=== PATIENT | female | born 1925 | race Caucasian/White ===

== ENCOUNTER 2016-09-24 12:28 | Inpatient (IN) | payer OTHER, MEDICARE ==
[~2016-09-24] VITALS: Ht 158.8 cm; Wt 66.7 kg
[2016-10-07] MEDS ORDERED: ATOR40TA16 PO (15:43)
[2016-10-07] MEDS ORDERED: OCUVTAB PO (15:43)
[2016-10-07] MEDS ORDERED: SYNT25TA PO (15:43)
[2016-10-07] MEDS ORDERED: AMOX500C PO (15:43)
[2016-10-07] MEDS ORDERED: OMEP20TA PO (15:56)
[2016-10-09] MEDS ORDERED: INSULIN HUMAN REGULAR 1,000 UNITS/10 ML VIAL SQ PRN (06:15)
[2016-10-09] MEDS ORDERED: VANCOMYCIN 1000 MG/NS 250 ML (for <70 kg) IV SCH ×2 (06:15)
[2016-10-09] MEDS ORDERED: POVIDONE IODINE 7.5% SCRUB 118 ML BOTTLE TOPICAL SCH (06:15)
[2016-10-09] MEDS ORDERED: SODIUM CHLORID 0.9% 500 ML IV PRN (06:15)
[2016-10-09] MEDS ORDERED: DEXAMETHASONE SOD PHOS 20 MG/5 ML VIAL IV SCH (06:15)
[2016-10-09] MEDS ORDERED: POVIDONE IODINE 5% (ANTISEPSIS KIT) 4 APPLICATIONS EACH NARE PRN (06:15)
[2016-10-09] MEDS ORDERED: CHLORHEXIDINE GLUCONATE 2 % 1 PACK (2 CLOTHS) TOPICAL PRN (06:15)
[2016-10-09] MEDS ORDERED: METOPROLOL TARTRATE 25 MG TAB PO PRN (06:15)
[2016-10-09] MEDS ORDERED: ceFAZolin 2 GM PREMIX 50 ML IV SCH (06:15)
[2016-10-09] MEDS ORDERED: LACTATED RINGER'S 1000 ML IV PRN (06:15)
--- NOTE | 2016-10-09 06:51 | HHI.DCPOC ---
Discharge Care Plan Diagnosis: (1) Primary localized osteoarthrosis, lower leg (2) Status post total knee replacement, left Your Health Problems Are: Difficulty with ADL Goals to Promote Your Health * To prevent worsening of your condition and complications * To maintain your health at the optimal level Directions to Meet Your Goals Take your medications as prescribed Follow your dietary instruction Follow activity as directed Keep your appointments as scheduled Take your immunizations and boosters as scheduled If your symptoms worsen call your PCP, if no PCP go to Urgent Care Center or Emergency Room Smoking is Dangerous to Your Health. Avoid second hand smoke Call the 24-hour hour crisis hotline for domestic abuse at Ruy Umanzor Oct 09, 2016 06:51
--- NOTE | 2016-10-09 06:52 | HHI.FF ---
Face to Face Verification Diagnosis: (1) Primary localized osteoarthrosis, lower leg (2) Status post total knee replacement, left Physical Therapy Gait training, Transfer training, bed to chair Knee: Total knee Left LE Weight Bearing: WB as tolerated Left LE Range of Motion: Active ROM Nursing Nursing: Nando teaching, Dressing changes Dressing Changes: Daily dressing change I have seen patient Cher Perez on 10/09/16. My clinical findings support the need for the requested home health care services because: Limited ability to care for self High risk of falls I certify that my clinical findings support that this patient is homebound because: Post-op weakness Unsteady gait/balance Ruy Umanzor Oct 09, 2016 06:52
[2016-10-09] MEDS ORDERED: COMMODE 3-IN-11 MIS (06:54)
[2016-10-09] MEDS ORDERED: CPMMACHINE (06:54)
[2016-10-09] MEDS ORDERED: WALKER WHEELS/F1 MIS (06:54)
[2016-10-09] MEDS ORDERED: FISHCAP4 PO (07:11)
[2016-10-09] MEDS ORDERED: ACETAMINOPHEN 1000 MG/100 ML 100 ML IV ONE (08:09)
[2016-10-09] MEDS ORDERED: DEXAMETHASONE SOD PHOS 4 MG/ML VIAL ONE (08:09)
[2016-10-09] MEDS ORDERED: FAMOTIDINE 20 MG/2 ML VIAL ONE (08:13)
[2016-10-09] MEDS ORDERED: ceFAZolin INJ 1,000 MG VIAL ONE (08:20)
[2016-10-09] MEDS ORDERED: GENTAMICIN SULFATE 80 MG/2 ML VIAL ONE (08:20)
[2016-10-09] MEDS ORDERED: TRANEXAMIC ACID IV SCH (08:30)
[2016-10-09] MEDS ORDERED: SODIUM CHLORIDE 0.9% IV SCH (08:30)
[2016-10-09] MEDS ORDERED: ROPIVACAINE PERI-ARTICULAR INJECTION. P-ARTICULR SCH ×5 (08:30)
--- NOTE | 2016-10-09 10:22 | PD.OP ---
cc: Mushtaq Giordano MD Operative Report Date of Surgery: Oct 09, 2016 Preoperative Diagnosis: Left knee severe osteoarthritis Postoperative Diagnosis: Same Procedure: Left total knee arthroplasty Anesthesia: Spinal and adductor canal block Surgeon: Mushtaq Giordano Home Health Care Case Manager(s): CHARAN Serrano The surgical procedure was assisted by my Advanced Registered Nurse Practitioner. My PAN CLEANER presence was necessary throughout this case for the manipulation and positioning of the surgical extremity. My PAN CLEANER was assisting me throughout the duration of this procedure. The skill set of an Advance Registered Nurse Practitioner was medically necessary to complete this procedure. During the surgical case, the senior games technician was working at the back table and the Advance Registered Nurse Practitioner was directly assisting me. Operation and Findings: IMPLANTS: DePuy Attune: Patella: size 35. Femur, posterior stabilized size 8. Tibia, rotating platform size 7. Tibial insert, rotating platform, posterior stabilized size 5 mm thickness. ESTIMATED BLOOD LOSS: 100 cc TOURNIQUET TIME: 39 minutes at 250 mmHg pressure. JUSTIFICATION FOR PROCEDURE: The patient has end-stage osteoarthritis to the knee. There is an attached conservative measures pathway form in the chart that describes the nonoperative measures that were undertaken prior to consideration of surgical management. The patient understood the risks and benefits of surgical management. See my office notes for further details PROCEDURE: The patient was brought back to the operative theatre. Adequate anesthesia was obtained. The patient received intravenous vancomycin and Ancef. The lower extremity was prepped and draped in the usual sterile fashion.The leg was exsanguinated, the tourniquet was raised. A standard anterior incision was performed followed by medial parapatellar arthrotomy was performed. End-stage arthritis was identified. Osteotomy of the patella was performed. We drilled holes for the patella. We trialed the patella component. We placed an intramedullary guide into the distal femur. We ultimately resected 11 mm off of the distal femur in 5 degrees of valgus. The remnants of the ACL and PCL were resected. Osteotomy of the proximal tibia was performed, resecting 5 mm off of the medial side. This was done with 3 degrees of posterior slope using an extramedullary guide. The distal end of the guide was placed in the mid aspect of the ankle. The femur was sized, and four chamfer cuts were completed in 3 of external rotation. We then cut the central box in the distal femur to replace the PCL. We resected the remnants of the menisci and removed osteophytes off of the femur and tibia. We then trialed the knee. We punched the tibia for the keel, and then used standard technique to cement in components. Excess cement was removed. We trialed the knee again and the final polyethylene thickness was chosen to provide extension to 0 degrees, and flexion of 140 degrees to gravity. The ligaments were appropriately balanced. Lateral release was necessary to obtain excellent patellofemoral tracking. The tourniquet was released and adequate hemostasis was obtained. An intra- articular injection of a ropivacaine cocktail was injected. The posterior knee was inspected for excess cement, which was removed. The final polyethylene was put into position after thorough irrigation. There was a partial avulsion of the patellar tendon off of the tubercle. This was repaired with an Arthrex bioabsorbable anchor which had 2 individual #2 fiber wires with needles within the anchor. The anchor had very good purchase. We used the sutures to throw a modified Krakw stitch into the tendon and then the sutures were tied to themselves. Overall we felt we had an excellent repair of the partial tear. No change in postoperative protocol will be necessary for this. We then closed deep fascia with a #2 Stratafix followed by skin with 2-0 Vicryl followed by angie. Postop plan is to weight-bear as tolerated. DVT prophylaxis will be performed with SCDwillie, LIZETTE astudillo, early mobilization, and Lovenox followed by aspirin. Mushtaq Giordano MD Oct 09, 2016 10:22
[2016-10-09] MEDS ORDERED: ASPI325T PO (10:23)
[2016-10-09] MEDS ORDERED: NORC5TAB PO (10:23)
[2016-10-09] MEDS ORDERED: ENOX40P SQ (10:23)
[2016-10-09] MEDS ORDERED: NALOXONE HCL 0.4 MG/ML AMP IV PRN (10:30)
[2016-10-09] MEDS ORDERED: ALUMINUM/MAGNESIUM/SIMETH 30 ML CUP PO PRN (10:30)
[2016-10-09] MEDS ORDERED: MAGNESIUM HYDROXIDE SUSP 30 ML CUP PO PRN (10:30)
[2016-10-09] MEDS ORDERED: BISACODYL 10 MG SUPP RECTAL PRN (10:30)
[2016-10-09] MEDS ORDERED: diphenhydrAMINE HCL 50 MG/ML VIAL IV PRN (10:30)
[2016-10-09] MEDS ORDERED: MORPHINE SULFATE 4 MG/ML INJ IV PUSH PRN (10:30)
[2016-10-09] MEDS ORDERED: SODIUM CHLORIDE 0.9% FLUSH 5 ML FLUSH IVF PRN (10:30)
[2016-10-09] MEDS ORDERED: ONDANSETRON HCL 4 MG/2 ML VIAL IVP PRN (10:30)
[2016-10-09] MEDS ORDERED: ZOLPIDEM TARTRATE 5 MG TAB PO PRN (10:30)
[2016-10-09] MEDS ORDERED: Post-op Orders (for Pharmacy) MISC XX ONE (10:49)
[2016-10-09] MEDS: SODIUM CHLOR 0.9% 1000 ML INJ 1,000 ML IV SCH ×2 (11:00→20:17)
[2016-10-09] MEDS ORDERED: MIDAZOLAM HCL 2 MG/2 ML VIAL ONE (11:09)
[2016-10-09] MEDS ORDERED: MORPHINE SULFATE 4 MG/ML INJ ONE (11:09)
[2016-10-09] MEDS ORDERED: TRANEXAMIC ACID INJ 670 MG in SODIUM CHLORIDE 0.9% INJ 100 ML IV SCH (11:30)
--- NOTE | 2016-10-09 11:36 | RADRPT ---
EXAM DATE/TIME: 10/09/2016 11:01 [place] COMPARISON: No previous studies available for comparison. INDICATIONS : Post-op left knee. MEDICAL HISTORY : None. SURGICAL HISTORY : None. ENCOUNTER: Initial ACUITY: 1 day PAIN SCORE: 0/10 LOCATION: Left Knee. FINDINGS: 2 views of the knee show a total knee prosthesis in good position. No fracture or dislocation is obse rved. Soft tissue swelling is noted. Air and fluid noted within the joint. CONCLUSION: Total knee arthroplasty in good position. Wilbur Mitchell Jr., MD on October 09, 2016 at 11:28 Board Certified Radiologist. This report was verified electronically.
[2016-10-09] MEDS ORDERED: *morphine SULFATE 8 MG/ML PERIprocedure ONLY ONE ×2 (11:43→12:36)
[2016-10-09] MEDS ORDERED: PROPOFOL 200 MG/20 ML AMP IV ONE (12:00)
[2016-10-09] MEDS ORDERED: PHENYLEPH/NS 1000 MCG/10 ML SYR IV ONE (12:00)
[2016-10-09] MEDS ORDERED: LACTATED RINGER'S 1000 ML INJ 1,000 ML IV ONE (12:00)
[2016-10-09] MEDS ORDERED: ONDANSETRON HCL 4 MG/2 ML VIAL IV PUSH ONE (12:00)
--- NOTE | 2016-10-09 12:41 | PD.CONS ---
HPI Service [facility] Hospitalists Consult Requested By Dr. Mushtaq Giordano Reason for Consult Medical management Primary Care Physician Lyao Carlos MD Diagnoses: History of Present Illness This is an 89-year-old female with a past medical history of hypertension, hypothyroidism, dyslipidemia, GERD and osteoarthritis of the left knee who failed attempts at conservative management having increasing difficulties with her ADLs who underwent an elective left total knee replacement performed by Dr. Giordano who has consulted hospitalist services for medical management. Patient seen and examined today in the PACU. Patient's pain level in the left knee is currently controlled. She denies any complaints presently. She denies any recent issues with fever, chills, nausea, vomiting, shortness of breath, chest pain, abdominal pain, urinary difficulties or bowel problems. States her last bowel movement was at 4 AM this morning. Patient reports she is very active and plays on a competitive bowling league. Review of Systems Except as stated in HPI: all other systems reviewed are Neg Past Family Social History Allergies: Coded Allergies: Sulfa (Sulfonamide Antibiotics) (Verified Allergy, Severe, Rash, 10/09/16) Past Medical History Osteoarthritis left knee Hypothyroidism Dyslipidemia GERD Past Surgical History Left total knee replacement performed earlier today by Dr. Giordano Appendectomy Hysterectomy Tonsillectomy Cataract surgery Reported Medications Synthroid 50 g 1 by mouth daily Lipitor 40 mg 1 by mouth daily Omeprazole 40 mg daily Active Ordered Medications Current Medications Medications (Trade) Dose Ordered Sig/Ana Maria Route Start Time Stop Time Status Last Admin (Lopressor) 25 mg STEWARD/STEWARDESS SMOKE ROOM PRN PO 10/09/16 06:15 10/12/16 06:14 (Betadine 5% Antisepsis Kit) 1 applic STEWARD/STEWARDESS SMOKE ROOM PRN EACH NARE 10/09/16 06:15 10/12/16 06:14 10/09/16 07:35 (Chlorhexidine 2% Cloth) 3 pack STEWARD/STEWARDESS SMOKE RO[facility] PRN TOPICAL 10/09/16 06:15 10/12/16 06:14 10/09/16 06:15 (NovoLIN R INJ) See Protocol Table ... STEWARD/STEWARDESS SMOKE ROOM PRN SQ 10/09/16 06:15 10/12/16 06:14 (Betadine 7.5% Scrub) 1 applic ONCE TOPICAL 10/09/16 06:15 10/12/16 06:14 10/09/16 06:30 Tranexamic Acid 669 mg/Sodium Chloride 106.69 ml @ 200 mls/ hr ONCE IV 10/09/16 08:30 10/09/16 14:30 10/09/16 11:13 (Decadron Inj) 10 mg STEWARD/STEWARDESS SMOKE ROOM IV 10/09/16 06:15 10/10/16 06:14 10/09/16 07:30 Ropivacaine 24.63 ml/Ketorolac Tromethamine 30 mg/Epinephrine HCl 0.5 mg/ Clonidine 80 mcg/ Sodium Chloride 100 ml @ 200 mls/hr ONCE P-ARTICULR 10/09/16 08:30 10/09/16 14:30 10/09/16 10:05 (Trimox) 500 mg BID PO 10/09/16 21:00 (Lipitor) 40 mg HS PO 10/09/16 21:00 (Synthroid) 50 mcg DAILY@0600 PO 10/10/16 06:00 (Protonix) 20 mg DAILY PO 10/10/16 09:00 Sodium Chloride 1,000 ml @ 100 mls/hr Q10H IV 10/09/16 10:17 10/09/16 11:00 (NS Flush) 2 ml UNSCH PRN IVF 10/09/16 10:30 (NS Flush) 2 ml BID IVF 10/09/16 21:00 Cefazolin Sodium 1000 mg/Sodium Chloride 100 ml @ 200 mls/hr Q6H IV 10/09/16 13:00 10/10/16 01:29 (Decadron Inj) 10 mg ONCE ONCE IV 10/10/16 07:45 10/10/16 07:46 (Lovenox Inj) 40 mg Q24H SQ 10/10/16 10:00 10/19/16 10:01 ([place] 5-325 Mg) 1 tab Q4H PRN PO 10/09/16 10:30 ([place] 5-325 Mg) 2 tab Q4H PRN PO 10/09/16 10:30 Tranexamic Acid 670 mg/Sodium Chloride 106.7 ml @ 200 mls/hr UNSCH IV 10/09/16 11:30 10/09/16 13:30 10/09/16 12:06 (Theragran M Tab) 1 tab BID PO 10/10/16 21:00 12/09/16 20:59 (Zofran Inj) 4 mg Q6H PRN IVP 10/09/16 10:30 (Colace) 100 mg BID PO 10/10/16 21:00 (Mag-Al Plus Susp Liq) 30 ml Q6H PRN PO 10/09/16 10:30 (Ambien) 5 mg HS PRN PO 10/09/16 10:30 (Dulcolax Supp) 10 mg DAILY PRN RECTAL 10/09/16 10:30 (Milk Of Magnesia Liq) 30 ml DAILY PRN PO 10/09/16 10:30 (Narcan Inj) 0.4 mg UNSCH PRN IV 10/09/16 10:30 (Benadryl Inj) 25 mg Q6H PRN IV 10/09/16 10:30 (Morphine Inj) 2 mg Q3H PRN IV PUSH 10/09/16 10:30 Family History Father, , coronary artery disease age 53 Mother, , natural causes age 102 Social History Patient reports remote history of tobacco use 30-40 years ago. She reports smoking half pack a day for 5-6 years. She admits to social alcohol use. She denies any illicit drug use. Patient lives alone. Physical Exam Vital Signs Vital Signs Date Time Temp Pulse Resp B/P (MAP) Pulse Ox O2 Delivery O2 Flow Rate FiO2 10/09/16 12:00 97.4 80 15 145/78 (100) 95 Nasal Cannula 2 10/09/16 11:45 79 15 158/83 (108) 95 Nasal Cannula 2 10/09/16 11:30 78 15 158/77 (104) 94 Nasal Cannula 2 10/09/16 11:15 77 15 154/73 (100) 94 Nasal Cannula 2 10/09/16 11:00 79 15 145/68 (93) 98 Nasal Cannula 3 10/09/16 10:48 97.5 83 15 132/63 (86) 94 Nasal Cannula 3 10/09/16 10:05 67 160/79 Physical Exam GENERAL: This is a well-nourished, well-developed patient, in no apparent distress. Awake and alert. Lying in hospital bed in PACU. Appears comfortable. SKIN: No rashes, ecchymoses or lesions. Cool and dry. HEAD: Atraumatic. Normocephalic. No temporal or scalp tenderness. EYES: Pupils equal round and reactive. Extraocular motions intact. No scleral icterus. No injection or drainage. ENT: Nose without bleeding or purulent drainage. Throat without erythema, tonsillar hypertrophy or exudate. Uvula midline. Airway patent. NECK: Trachea midline. No lymphadenopathy. Supple, nontender, no meningeal signs. CARDIOVASCULAR: Regular rate and rhythm without murmurs, gallops, or rubs. RESPIRATORY: Clear to auscultation. Breath sounds equal bilaterally. No wheezes , rales, or rhonchi. GASTROINTESTINAL: Abdomen soft, non-tender, nondistended. No hepato-splenomegaly , or palpable masses. No guarding. MUSCULOSKELETAL: Extremities without clubbing, cyanosis, or edema. LLE in postop dressing and splint which are C/D/I. NEUROLOGICAL: Awake and alert. Able to move all extremities spontaneously except for LLE which is in splint. Able to weakly wiggle toes on left foot. Sensation intact LLE distally to light touch. Normal speech. Imaging Last Impressions Knee X-Ray 10/09/16 1017 Signed Impressions: Service Date/Time: Sunday, October 09, 2016 11:01 - CONCLUSION: Total knee arthroplasty in good position. Wilbur Mitchell Jr., MD Assessment and Plan Assessment and Plan 89-year-old female with a past medical history of hypertension, hypothyroidism, dyslipidemia, GERD and osteoarthritis of the left knee who failed attempts at conservative management having increasing difficulties with her ADLs who underwent an elective left total knee replacement performed by Dr. Giordano who has consulted hospitalist services for medical management. Left knee osteoarthritis failed attempts at outpatient conservative management status postop elective left total knee replacement by Dr. Giordano - Begin participation with PT/OT - wound care - pain management with [place] and IV Morphine. Bowel regimen. Monitor for constipation - DVT prophylaxis with SCD/LIZETTE hose, early mobilization, Lovenox followed by ASA per primary team - monitor for postoperative anemia - labs ordered for am - encourage use of bedside IS UTI - diagnosed as outpatient a few days ago - patient is asymptomatic - patient continued on Amoxicillin by primary team - add Lactobacillus to regimen Hypothyroidism - resume patients home dose of Levothyroxine 50mcg daily Hyperlipidemia - resume patients home dose of Lipitor 40mg daily GERD - resume patients home dose of PPI DVT prophylaxis - Bilateral SCD/LIZETTE hose, early mobilization and Lovenox followed by ASA Discussed with patient and Dr. Catherine Thank you very kindly for this consultation and will gladly follow along with you. The exam, history, and the medical decision-making described in the above note were completed with the assistance of the mid-level provider. I reviewed and agree with the findings presented. I attest that I had a [id number] encounter with the patient on the same day, and personally performed and documented my assessment and findings in the medical record. Anamaria Singh Oct 09, 2016 12:41 Cliff Barrett MD Oct 09, 2016 16:21
[2016-10-09] MEDS: LACTOBACILLUS ACIDOPHILUS TAB PO SCH ×2 (14:00→20:09)
[2016-10-09] MEDS ORDERED: DO NOT ADM ANY ANTICOAGULANT DRUGS PRN (14:15)
[2016-10-09 16:00] VITALS: BP 179/79; PULSE 73; RESP 18; TEMP 96.4; O2SAT 96
[2016-10-09] MEDS: ATORVASTATIN 40 MG TAB PO SCH (20:09)
[2016-10-09] MEDS: SODIUM CHLORIDE 0.9% FLUSH 5 ML FLUSH IVF SCH (20:09)
[2016-10-09] MEDS: AMOXICILLIN (TRIHYDRATE) 500 MG CAP PO SCH (20:09)
[2016-10-09 20:25] VITALS: BP 136/78; PULSE 61; RESP 17; TEMP 96.2; O2SAT 96
[2016-10-10] VITALS (9 sets, daily range): BP systolic 89–153; BP diastolic 52–64; PULSE 67–105; RESP 16–18; TEMP 96.6–98.4; O2SAT 89–96
[2016-10-10 06:03] LABS: HEMATOCRIT 29.7 % (35.0-46.0); MEAN CELL VOLUME 88.6 FL (80.0-100.0); MEAN CORPUSCULAR HEMOGLOBIN 29.9 PG (27.0-34.0); MEAN CORPUSCULAR HGB CONC 33.8 % (32.0-36.0); PLATELET COUNT 134 TH/MM3 (150-450); RED BLOOD COUNT 3.35 MIL/MM3 (4.00-5.30); RED CELL DISTRIBUTION WIDTH 13.4 % (11.6-17.2); REVIEW FLAG FINAL; WHITE BLOOD COUNT 7.9 TH/MM3 (4.0-11.0)
[2016-10-10] MEDS: SODIUM CHLOR 0.9% 1000 ML INJ 1,000 ML IV SCH ×3 (06:17→23:56)
[2016-10-10] MEDS: ACETAMINOPHEN/HYDROcodone 325 MG/5 MG TAB PO PRN ×4 (06:23→20:35)
[2016-10-10] MEDS: LEVOTHYROXINE SODIUM 25 MCG TAB PO SCH (06:23)
[2016-10-10 06:33] LABS: ANION GAP 9 MEQ/L (5-15); AST (GOT) 15 U/L (15-37); BLOOD UREA NITROGEN 25 MG/DL (7-18); CHLORIDE 108 MEQ/L (98-107); GLOMERULAR FILTRATION RATE 53 ML/MIN (>89); MAGNESIUM 1.7 MG/DL (1.5-2.5); POTASSIUM 3.9 MEQ/L (3.5-5.1); SODIUM (NA) 142 MEQ/L (136-145)
[2016-10-10 06:34] LABS: ALT (GPT) 16 U/L (10-53)
[2016-10-10 06:37] LABS: ALKALINE PHOSPHATASE 74 U/L (45-117); TOTAL BILIRUBIN ADULT 0.3 MG/DL (0.2-1.0)
[2016-10-10] MEDS ORDERED: DEXAMETHASONE SOD PHOS 20 MG/5 ML VIAL IV ONE (07:45)
[2016-10-10] MEDS: SODIUM CHLORIDE 0.9% FLUSH 5 ML FLUSH IVF SCH ×2 (09:00→20:40)
--- NOTE | 2016-10-10 09:41 | HHI.PR ---
Subjective Remarks This is an 89-year-old female with Hypertension, Hypothyroidism, Hyperlipidemia , GERD, OA, Who failed outpatient management for OA and was brought in by Orthopedic surgery for elective left total knee replacement performed by Dr. Giordano 10/10: Seen in her bedroom in the presence of nurse and her Son Mr. Valle no complaint, no nausea, vomit or diarrhea, stable for discharge from medicine standpoint. Objective Vital Signs Date Time Temp Pulse Resp B/P (MAP) Pulse Ox O2 Delivery O2 Flow Rate FiO2 10/10/16 08:00 98.0 68 18 116/58 (77) 96 10/10/16 04:30 98.0 76 16 134/64 (87) 94 10/10/16 03:24 96 Nasal Cannula 2.00 10/10/16 00:15 96.6 78 17 153/61 (91) 96 10/09/16 20:25 96.2 61 17 136/78 (97) 96 10/09/16 16:00 96.4 73 18 179/79 (112) 96 10/09/16 16:00 96.4 73 18 179/79 (112) 96 10/09/16 14:45 97.5 71 16 131/75 (93) 95 Nasal Cannula 2 10/09/16 14:00 75 15 138/74 (95) 95 Nasal Cannula 2 10/09/16 13:00 82 15 142/75 (97) 95 Nasal Cannula 2 10/09/16 12:41 15 10/09/16 12:00 97.4 80 15 145/78 (100) 95 Nasal Cannula 2 10/09/16 11:48 15 10/09/16 11:45 79 15 158/83 (108) 95 Nasal Cannula 2 10/09/16 11:30 78 15 158/77 (104) 94 Nasal Cannula 2 10/09/16 11:15 77 15 154/73 (100) 94 Nasal Cannula 2 10/09/16 11:00 79 15 145/68 (93) 98 Nasal Cannula 3 10/09/16 10:48 97.5 83 15 132/63 (86) 94 Nasal Cannula 3 10/09/16 10:05 67 160/79 I/O 10/09/16 10/09/16 10/09/16 10/10/16 10/10/16 10/10/16 07:00 15:00 23:00 07:00 15:00 23:00 Intake Total 2903.39 ml 990 ml 340 ml Output Total 50 ml Balance 2853.39 ml 990 ml 340 ml Intake Oral 240 ml 240 ml 240 ml IV Total 813.39 ml 750 ml 100 ml Other 1850 ml Output Estimated Blood Loss 50 ml # Voids 4 1 3 # Bowel Movements 0 0 Result Diagram: 10/10/16 0457 10/10/16 0547 Imaging Last Impressions Knee X-Ray 10/09/16 1017 Signed Impressions: Service Date/Time: Sunday, October 09, 2016 11:01 - CONCLUSION: Total knee arthroplasty in good position. Wilbur Mitchell Jr., MD Procedures Left total knee Arthroplasty Other Results Laboratory Tests Test 10/10/16 04:57 10/10/16 05:47 White Blood Count 7.9 TH/MM3 Red Blood Count 3.35 MIL/MM3 Hemoglobin 10.0 GM/DL Hematocrit 29.7 % Mean Corpuscular Volume 88.6 FL Mean Corpuscular Hemoglobin 29.9 PG Mean Corpuscular Hemoglobin Concent 33.8 % Red Cell Distribution Width 13.4 % Platelet Count 134 TH/MM3 Mean Platelet Volume 8.9 FL Blood Urea Nitrogen 25 MG/DL Creatinine 0.98 MG/DL Random Glucose 98 MG/DL Total Protein 4.6 GM/DL Albumin 2.4 GM/DL Calcium Level 7.5 MG/DL Magnesium Level 1.7 MG/DL Alkaline Phosphatase 74 U/L Aspartate Amino Transf (AST/SGOT) 15 U/L Alanine Aminotransferase (ALT/SGPT) 16 U/L Total Bilirubin 0.3 MG/DL Sodium Level 142 MEQ/L Potassium Level 3.9 MEQ/L Chloride Level 108 MEQ/L Carbon Dioxide Level 25.0 MEQ/L Anion Gap 9 MEQ/L Estimat Glomerular Filtration Rate 53 ML/MIN Objective Remarks GENERAL: This is a well-nourished, well-developed patient, in no apparent distress. SKIN: No rashes, ecchymoses or lesions. Cool and dry. EYES: Pupils equal round and reactive. Extraocular motions intact. No scleral icterus. No injection or drainage. NECK: Trachea midline. No lymphadenopathy. Supple, nontender, no meningeal signs. CARDIOVASCULAR: Regular rate and rhythm without murmurs, gallops, or rubs. RESPIRATORY: Clear to auscultation. Breath sounds equal bilaterally. No wheezes , rales, or rhonchi. GASTROINTESTINAL: Abdomen soft, non-tender, nondistended. MUSCULOSKELETAL: Extremities without clubbing, cyanosis, or edema. LLE dressed. NEUROLOGICAL: Awake and alert. Medications and IVs Current Medications Medications (Trade) Dose Ordered Sig/Ana Maria Route Start Time Stop Time Status Last Admin (Lopressor) 25 mg PROPAGATOR PRN PO 10/09/16 06:15 10/12/16 06:14 (Betadine 5% Antisepsis Kit) 1 applic PROPAGATOR PRN EACH NARE 10/09/16 06:15 10/12/16 06:14 10/09/16 07:35 (Chlorhexidine 2% Cloth) 3 pack PROPAGATOR PRN TOPICAL 10/09/16 06:15 10/12/16 06:14 10/09/16 06:15 (NovoLIN R INJ) See Protocol Table ... PROPAGATOR PRN SQ 10/09/16 06:15 10/12/16 06:14 (Betadine 7.5% Scrub) 1 applic ONCE TOPICAL 10/09/16 06:15 10/12/16 06:14 10/09/16 06:30 (Trimox) 500 mg BID PO 10/09/16 21:00 10/09/16 20:09 (Lipitor) 40 mg HS PO 10/09/16 21:00 10/09/16 20:09 (Synthroid) 50 mcg DAILY@0600 PO 10/10/16 06:00 10/10/16 06:23 (Protonix) 20 mg DAILY PO 10/10/16 09:00 Sodium Chloride 1,000 ml @ 100 mls/hr Q10H IV 10/09/16 10:17 10/09/16 11:00 (NS Flush) 2 ml UNSCH PRN IVF 10/09/16 10:30 (NS Flush) 2 ml BID IVF 10/09/16 21:00 (Lovenox Inj) 40 mg Q24H SQ 10/10/16 10:00 10/19/16 10:01 ([place] 5-325 Mg) 1 tab Q4H PRN PO 10/09/16 10:30 10/10/16 06:23 ([place] 5-325 Mg) 2 tab Q4H PRN PO 10/09/16 10:30 (Theragran M Tab) 1 tab BID PO 10/10/16 21:00 12/09/16 20:59 (Zofran Inj) 4 mg Q6H PRN IVP 10/09/16 10:30 (Colace) 100 mg BID PO 10/10/16 21:00 (Mag-Al Plus Susp Liq) 30 ml Q6H PRN PO 10/09/16 10:30 (Ambien) 5 mg HS PRN PO 10/09/16 10:30 (Dulcolax Supp) 10 mg DAILY PRN RECTAL 10/09/16 10:30 (Milk Of Magnesia Liq) 30 ml DAILY PRN PO 10/09/16 10:30 (Narcan Inj) 0.4 mg UNSCH PRN IV 10/09/16 10:30 (Benadryl Inj) 25 mg Q6H PRN IV 10/09/16 10:30 (Morphine Inj) 2 mg Q3H PRN IV PUSH 10/09/16 10:30 10/09/16 17:50 (Lactinex) 1 tab Q12HR PO 10/09/16 14:00 10/09/16 20:09 Miscellaneous Information ALL NURSING DEPARTME... UNSCH PRN .XX 10/09/16 14:15 10/10/16 14:14 A/P Assessment and Plan 89-year-old female with a past medical history of hypertension, hypothyroidism, dyslipidemia, GERD and osteoarthritis of the left knee who failed attempts at conservative management having increasing difficulties with her ADLs who underwent an elective left total knee replacement performed by Dr. Giordano who has consulted hospitalist services for medical management. Left knee osteoarthritis failed attempts at outpatient conservative management status postop elective left total knee replacement by Dr. Giordano - Begin participation with PT/OT - wound care - pain management with [place] and IV Morphine. Bowel regimen. Monitor for constipation - DVT prophylaxis with SCD/LIZETTE hose, early mobilization, Lovenox followed by ASA per primary team - Hemoglobin Stable. UTI - treated. patient asymptomatic. Hypothyroidism - resume patients home dose of Levothyroxine 50mcg daily Hyperlipidemia - resume patients home dose of Lipitor 40mg daily GERD - resume patients home dose of PPI DVT prophylaxis - Bilateral SCD/LIZETTE hose, early mobilization and Lovenox followed by ASA Discharge Planning Okay to discharge from medicine standpoint. Cliff Barrett MD Oct 10, 2016 09:41
[2016-10-10] MEDS: PANTOPRAZOLE SOD 20 MG DELAYED RELEASE TAB PO SCH (10:24)
[2016-10-10] MEDS: AMOXICILLIN (TRIHYDRATE) 500 MG CAP PO SCH ×2 (10:24→20:35)
[2016-10-10] MEDS: LACTOBACILLUS ACIDOPHILUS TAB PO SCH ×2 (10:24→20:35)
[2016-10-10] MEDS: ENOXAPARIN SODIUM 40 MG/0.4 ML SYRINGE SQ SCH (10:24)
--- NOTE | 2016-10-10 12:22 | PD.ORT.PN ---
Subjective Post Op Day #: 1 Subjective Remarks The patient is resting in bed with moderate left knee pain. Patient's son at bedside. Patient has been ambulatory. Objective Vitals Vital Signs Date Time Temp Pulse Resp B/P (MAP) Pulse Ox O2 Delivery O2 Flow Rate FiO2 10/10/16 12:06 97.7 105 18 89/52 (64) 89 10/10/16 08:00 98.0 68 18 116/58 (77) 96 10/10/16 04:30 98.0 76 16 134/64 (87) 94 10/10/16 03:24 96 Nasal Cannula 2.00 10/10/16 00:15 96.6 78 17 153/61 (91) 96 10/09/16 20:25 96.2 61 17 136/78 (97) 96 10/09/16 16:00 96.4 73 18 179/79 (112) 96 10/09/16 16:00 96.4 73 18 179/79 (112) 96 10/09/16 14:45 97.5 71 16 131/75 (93) 95 Nasal Cannula 2 10/09/16 14:00 75 15 138/74 (95) 95 Nasal Cannula 2 10/09/16 13:00 82 15 142/75 (97) 95 Nasal Cannula 2 10/09/16 12:41 15 I/O 10/09/16 10/09/16 10/09/16 10/10/16 10/10/16 10/10/16 07:00 15:00 23:00 07:00 15:00 23:00 Intake Total 2903.39 ml 990 ml 340 ml Output Total 50 ml Balance 2853.39 ml 990 ml 340 ml Intake Oral 240 ml 240 ml 240 ml IV Total 813.39 ml 750 ml 100 ml Other 1850 ml Output Estimated Blood Loss 50 ml # Voids 4 1 3 # Bowel Movements 0 0 Result Diagram: 10/10/16 0457 10/10/16 0547 Procedures Left TKA Objective Remarks The patient's dressing is C/D/I. EHL/TA/G intact. 2+ pedal pulse. No swelling or tenderness to calf. + SILT. Assessment & Plan Ortho Post Op Day #: 1 Problem List: Assessment and Plan POD #1: Left TKA 1. WBAT LLE 2. Lovenox followed by ASA for DVT prophylaxis 3. Ice to the left knee PRN 4. Plan is for discharge to SNF on Friday 5. F/U in the office with Dr. Giordano or CHARAN Landon as previously scheduled. Ruy Umanzor Oct 10, 2016 12:22
[2016-10-10] MEDS: MULTIVITAMINS/MINERALS THERAPEUTIC TAB PO SCH (20:35)
[2016-10-10] MEDS: ATORVASTATIN 40 MG TAB PO SCH (20:35)
[2016-10-10] MEDS: DOCUSATE SODIUM 100 MG CAP PO SCH (20:40)
[2016-10-11] MEDS: ACETAMINOPHEN/HYDROcodone 325 MG/5 MG TAB PO PRN ×3 (01:58→20:07)
[2016-10-11] MEDS: LEVOTHYROXINE SODIUM 25 MCG TAB PO SCH (05:22)
[2016-10-11 07:09] VITALS: BP 116/56; PULSE 69; RESP 16; TEMP 96.7; O2SAT 94
[2016-10-11 07:23] LABS: HEMATOCRIT 25.1 % (35.0-46.0); MEAN CELL VOLUME 88.3 FL (80.0-100.0); MEAN CORPUSCULAR HEMOGLOBIN 29.2 PG (27.0-34.0); MEAN CORPUSCULAR HGB CONC 33.1 % (32.0-36.0); PLATELET COUNT 120 TH/MM3 (150-450); RED BLOOD COUNT 2.84 MIL/MM3 (4.00-5.30); RED CELL DISTRIBUTION WIDTH 13.5 % (11.6-17.2); REVIEW FLAG FINAL; WHITE BLOOD COUNT 6.6 TH/MM3 (4.0-11.0)
[2016-10-11] MEDS: AMOXICILLIN (TRIHYDRATE) 500 MG CAP PO SCH ×2 (08:57→20:06)
[2016-10-11] MEDS: MULTIVITAMINS/MINERALS THERAPEUTIC TAB PO SCH ×2 (08:57→20:06)
[2016-10-11] MEDS: ENOXAPARIN SODIUM 40 MG/0.4 ML SYRINGE SQ SCH (08:57)
[2016-10-11] MEDS: DOCUSATE SODIUM 100 MG CAP PO SCH ×2 (08:57→20:06)
[2016-10-11] MEDS: LACTOBACILLUS ACIDOPHILUS TAB PO SCH ×2 (08:57→20:05)
[2016-10-11] MEDS: PANTOPRAZOLE SOD 20 MG DELAYED RELEASE TAB PO SCH (08:57)
[2016-10-11] MEDS: SODIUM CHLORIDE 0.9% FLUSH 5 ML FLUSH IVF SCH ×2 (08:58→20:07)
--- NOTE | 2016-10-11 10:20 | HHI.PR ---
Subjective Remarks This is an 89-year-old female with Hypertension, Hypothyroidism, Hyperlipidemia , GERD, OA, Who failed outpatient management for OA and was brought in by Orthopedic surgery for elective left total knee replacement performed by Dr. Giordano 10/11: Seen in her bedroom no complaint, no nausea, vomit or diarrhea, Objective Vital Signs Date Time Temp Pulse Resp B/P (MAP) Pulse Ox O2 Delivery O2 Flow Rate FiO2 10/11/16 07:09 96.7 69 16 116/56 (76) 94 10/10/16 23:45 98.4 71 16 140/63 (88) 92 10/10/16 20:53 Nasal Cannula 2.00 10/10/16 20:30 97.4 67 16 130/61 (84) 92 10/10/16 17:03 16 10/10/16 16:52 93 10/10/16 16:00 97.1 71 17 134/63 (86) 91 10/10/16 12:06 97.7 105 18 89/52 (64) 89 I/O 10/10/16 10/10/16 10/10/16 10/11/16 10/11/16 10/11/16 07:00 15:00 23:00 07:00 15:00 23:00 Intake Total 340 ml 1600 ml 240 ml 240 ml Balance 340 ml 1600 ml 240 ml 240 ml Intake Oral 240 ml 1600 ml 240 ml 240 ml IV Total 100 ml # Voids 3 4 2 3 # Bowel Movements 0 0 0 0 Result Diagram: 10/11/16 0628 10/10/16 0547 Imaging Last Impressions Knee X-Ray 10/09/16 1017 Signed Impressions: Service Date/Time: Sunday, October 09, 2016 11:01 - CONCLUSION: Total knee arthroplasty in good position. Wilbur Mitchell Jr., MD Procedures Left total knee Arthroplasty Other Results Laboratory Tests Test 10/10/16 05:47 10/11/16 06:28 Blood Urea Nitrogen 25 MG/DL Creatinine 0.98 MG/DL Random Glucose 98 MG/DL Total Protein 4.6 GM/DL Albumin 2.4 GM/DL Calcium Level 7.5 MG/DL Magnesium Level 1.7 MG/DL Alkaline Phosphatase 74 U/L Aspartate Amino Transf (AST/SGOT) 15 U/L Alanine Aminotransferase (ALT/SGPT) 16 U/L Total Bilirubin 0.3 MG/DL Sodium Level 142 MEQ/L Potassium Level 3.9 MEQ/L Chloride Level 108 MEQ/L Carbon Dioxide Level 25.0 MEQ/L Anion Gap 9 MEQ/L Estimat Glomerular Filtration Rate 53 ML/MIN White Blood Count 6.6 TH/MM3 Red Blood Count 2.84 MIL/MM3 Hemoglobin 8.3 GM/DL Hematocrit 25.1 % Mean Corpuscular Volume 88.3 FL Mean Corpuscular Hemoglobin 29.2 PG Mean Corpuscular Hemoglobin Concent 33.1 % Red Cell Distribution Width 13.5 % Platelet Count 120 TH/MM3 Mean Platelet Volume 9.0 FL Objective Remarks GENERAL: This is a well-nourished, well-developed patient, in no apparent distress. SKIN: No rashes, ecchymoses or lesions. Cool and dry. EYES: Pupils equal round and reactive. Extraocular motions intact. No scleral icterus. No injection or drainage. NECK: Trachea midline. No lymphadenopathy. Supple, nontender, no meningeal signs. CARDIOVASCULAR: Regular rate and rhythm without murmurs, gallops, or rubs. RESPIRATORY: Clear to auscultation. Breath sounds equal bilaterally. No wheezes , rales, or rhonchi. GASTROINTESTINAL: Abdomen soft, non-tender, nondistended. MUSCULOSKELETAL: Extremities without clubbing, cyanosis, or edema. LLE dressed. NEUROLOGICAL: Awake and alert. Medications and IVs Current Medications Medications (Trade) Dose Ordered Sig/Ana Maria Route Start Time Stop Time Status Last Admin (Lopressor) 25 mg PIPE ORGAN TECHNICIAN PRN PO 10/09/16 06:15 10/12/16 06:14 (Betadine 5% Antisepsis Kit) 1 applic PIPE ORGAN TECHNICIAN PRN EACH NARE 10/09/16 06:15 10/12/16 06:14 10/09/16 07:35 (Chlorhexidine 2% Cloth) 3 pack PIPE ORGAN TECHNICIAN PRN TOPICAL 10/09/16 06:15 10/12/16 06:14 10/09/16 06:15 (NovoLIN R INJ) See Protocol Table ... PIPE ORGAN TECHNICIAN PRN SQ 10/09/16 06:15 10/12/16 06:14 (Betadine 7.5% Scrub) 1 applic ONCE TOPICAL 10/09/16 06:15 10/12/16 06:14 10/09/16 06:30 (Trimox) 500 mg BID PO 10/09/16 21:00 10/11/16 08:57 (Lipitor) 40 mg HS PO 10/09/16 21:00 10/10/16 20:35 (Synthroid) 50 mcg DAILY@0600 PO 10/10/16 06:00 10/11/16 05:22 (Protonix) 20 mg DAILY PO 10/10/16 09:00 10/11/16 08:57 Sodium Chloride 1,000 ml @ 100 mls/hr Q10H IV 10/09/16 10:17 10/09/16 11:00 (NS Flush) 2 ml UNSCH PRN IVF 10/09/16 10:30 (NS Flush) 2 ml BID IVF 10/09/16 21:00 10/11/16 08:58 (Lovenox Inj) 40 mg Q24H SQ 10/10/16 10:00 10/19/16 10:01 10/11/16 08:57 ([place] 5-325 Mg) 1 tab Q4H PRN PO 10/09/16 10:30 10/10/16 20:35 ([place] 5-325 Mg) 2 tab Q4H PRN PO 10/09/16 10:30 10/11/16 05:22 (Theragran M Tab) 1 tab BID PO 10/10/16 21:00 12/09/16 20:59 10/11/16 08:57 (Zofran Inj) 4 mg Q6H PRN IVP 10/09/16 10:30 (Colace) 100 mg BID PO 10/10/16 21:00 10/11/16 08:57 (Mag-Al Plus Susp Liq) 30 ml Q6H PRN PO 10/09/16 10:30 (Ambien) 5 mg HS PRN PO 10/09/16 10:30 (Dulcolax Supp) 10 mg DAILY PRN RECTAL 10/09/16 10:30 (Milk Of Magnesia Liq) 30 ml DAILY PRN PO 10/09/16 10:30 10/10/16 20:38 (Narcan Inj) 0.4 mg UNSCH PRN IV 10/09/16 10:30 (Benadryl Inj) 25 mg Q6H PRN IV 10/09/16 10:30 (Morphine Inj) 2 mg Q3H PRN IV PUSH 10/09/16 10:30 10/09/16 17:50 (Lactinex) 1 tab Q12HR PO 10/09/16 14:00 10/11/16 08:57 A/P Assessment and Plan 89-year-old female with a past medical history of hypertension, hypothyroidism, dyslipidemia, GERD and osteoarthritis of the left knee who failed attempts at conservative management having increasing difficulties with her ADLs who underwent an elective left total knee replacement performed by Dr. Giordano who has consulted hospitalist services for medical management. Left knee osteoarthritis failed attempts at outpatient conservative management status postop elective left total knee replacement by Dr. Giordano - Begin participation with PT/OT - wound care - pain management with [place] and IV Morphine. Bowel regimen. Monitor for constipation - DVT prophylaxis with SCD/LIZETTE hose, early mobilization, Lovenox followed by ASA per primary team - Hemoglobin Stable. UTI - treated. patient asymptomatic. Hypothyroidism - resume patients home dose of Levothyroxine 50mcg daily Hyperlipidemia - resume patients home dose of Lipitor 40mg daily GERD - resume patients home dose of PPI Hypomagnesemia replaced DVT prophylaxis - Bilateral SCD/LIZETTE hose, early mobilization and Lovenox followed by ASA Discharge Planning Okay to discharge from medicine standpoint. Cliff Barrett MD Oct 11, 2016 10:20
[2016-10-11 11:20] VITALS: BP 113/53; PULSE 67; RESP 16; TEMP 96.7; O2SAT 95
[2016-10-11] MEDS ORDERED: MAGNESIUM OXIDE 400 MG TAB PO ONE (11:45)
[2016-10-11 13:00] VITALS: O2SAT 94
--- NOTE | 2016-10-11 16:45 | PD.ORT.PN ---
Subjective Subjective Remarks feeling better Objective Vitals Vital Signs Date Time Temp Pulse Resp B/P (MAP) Pulse Ox O2 Delivery O2 Flow Rate FiO2 10/11/16 13:00 94 10/11/16 11:20 96.7 67 16 113/53 (73) 95 10/11/16 07:09 96.7 69 16 116/56 (76) 94 10/10/16 23:45 98.4 71 16 140/63 (88) 92 10/10/16 20:53 Nasal Cannula 2.00 10/10/16 20:30 97.4 67 16 130/61 (84) 92 10/10/16 17:03 16 10/10/16 16:52 93 I/O 10/10/16 10/10/16 10/10/16 10/11/16 10/11/16 10/11/16 07:00 15:00 23:00 07:00 15:00 23:00 Intake Total 340 ml 1600 ml 240 ml 240 ml 720 ml Balance 340 ml 1600 ml 240 ml 240 ml 720 ml Intake Oral 240 ml 1600 ml 240 ml 240 ml 720 ml IV Total 100 ml # Voids 3 4 2 3 5 # Bowel Movements 0 0 0 0 0 Result Diagram: 10/11/16 0628 10/10/16 0547 Procedures Left TKA Objective Remarks The patient's incision has scant serosang drainage. EHL/TA/G intact. 2+ pedal pulse. No swelling or tenderness to calf. + SILT. Assessment & Plan Assessment and Plan POD #2: Left TKA 1. WBAT LLE 2. Lovenox followed by ASA for DVT prophylaxis 3. Ice to the left knee PRN 4. Plan is for discharge to SNF on Friday 5. F/U in the office with Dr. Giordano or CHARAN Landon as previously scheduled. Mushtaq Giordano MD Oct 11, 2016 16:45
[2016-10-11 17:00] VITALS: BP 150/65; PULSE 87; RESP 20; TEMP 96.2; O2SAT 94
[2016-10-11 20:00] VITALS: BP 153/68; PULSE 98; RESP 20; TEMP 97.9; O2SAT 92
[2016-10-11] MEDS: ATORVASTATIN 40 MG TAB PO SCH (20:06)
[2016-10-12] MEDS: LEVOTHYROXINE SODIUM 25 MCG TAB PO SCH (06:46)
[2016-10-12] MEDS: ACETAMINOPHEN/HYDROcodone 325 MG/5 MG TAB PO PRN ×2 (06:46→10:21)
--- NOTE | 2016-10-12 07:08 | PD.ORT.PN ---
Subjective Subjective Remarks POD 3 s/p left TKA patient having issues with pain control. waited too long before having pain medication. states extreme pain. has been out of bed quite frequently to get to bathroom and back. also reports nausea Objective Vitals Vital Signs Date Time Temp Pulse Resp B/P (MAP) Pulse Ox O2 Delivery O2 Flow Rate FiO2 10/11/16 20:14 Room Air 10/11/16 20:00 97.9 98 20 153/68 (96) 92 10/11/16 17:00 96.2 87 20 150/65 (93) 94 10/11/16 13:00 94 10/11/16 11:20 96.7 67 16 113/53 (73) 95 10/11/16 07:09 96.7 69 16 116/56 (76) 94 I/O 10/11/16 10/11/16 10/11/16 10/12/16 10/12/16 10/12/16 06:59 14:59 22:59 06:59 14:59 22:59 Intake Total 240 ml 720 ml 960 ml 320 ml Balance 240 ml 720 ml 960 ml 320 ml Intake Oral 240 ml 720 ml 960 ml 320 ml # Voids 3 5 8 5 # Bowel Movements 0 0 1 Result Diagram: 10/11/16 0628 10/10/16 0547 Procedures Left TKA Objective Remarks LLE: dressings clean and dry. incision clean. minimal drainage. no erythema. good dorsiflexion of foot. full sensation Assessment & Plan Assessment and Plan POD #3: Left TKA 1. WBAT LLE 2. Lovenox followed by ASA for DVT prophylaxis 3. Ice to the left knee PRN 4. Plan is for discharge to SNF on Friday 5. F/U in the office with Dr. Giordano or CHARAN Landon as previously scheduled. -pain meds Q4H for pain control -zofran for nausea -cleared for DC to rehab once pain better controlled Clinton Nichols Oct 12, 2016 07:08
[2016-10-12 07:11] VITALS: BP 145/63; PULSE 97; RESP 17; TEMP 99.4; O2SAT 96
[2016-10-12 07:20] LABS: HEMATOCRIT 25.3 % (35.0-46.0); MEAN CELL VOLUME 88.8 FL (80.0-100.0); MEAN CORPUSCULAR HEMOGLOBIN 29.5 PG (27.0-34.0); MEAN CORPUSCULAR HGB CONC 33.3 % (32.0-36.0); PLATELET COUNT 136 TH/MM3 (150-450); RED BLOOD COUNT 2.85 MIL/MM3 (4.00-5.30); RED CELL DISTRIBUTION WIDTH 13.7 % (11.6-17.2); REVIEW FLAG FINAL; WHITE BLOOD COUNT 6.5 TH/MM3 (4.0-11.0)
[2016-10-12] MEDS: SODIUM CHLORIDE 0.9% FLUSH 5 ML FLUSH IVF SCH (09:00)
[2016-10-12] MEDS: LACTOBACILLUS ACIDOPHILUS TAB PO SCH (10:19)
[2016-10-12] MEDS: AMOXICILLIN (TRIHYDRATE) 500 MG CAP PO SCH (10:19)
[2016-10-12] MEDS: DOCUSATE SODIUM 100 MG CAP PO SCH (10:20)
[2016-10-12] MEDS: ENOXAPARIN SODIUM 40 MG/0.4 ML SYRINGE SQ SCH (10:20)
[2016-10-12] MEDS: MULTIVITAMINS/MINERALS THERAPEUTIC TAB PO SCH (10:20)
[2016-10-12] MEDS: PANTOPRAZOLE SOD 20 MG DELAYED RELEASE TAB PO SCH (10:20)
--- NOTE | 2016-10-15 16:48 | HHI.DS ---
Discharge Summary Admission Date Oct 09, 2016 at 05:41 Discharge Date: Oct 12, 2016 Admitting Diagnosis Primary localized OA, lower leg Status post total knee replacement, left Diagnosis: (1) Primary localized osteoarthrosis, lower leg Diagnosis: Principal ICD Codes: M17.10 - Unilateral primary osteoarthritis, unspecified knee (2) Status post total knee replacement, left Diagnosis: Principal ICD Codes: Z96.652 - Presence of left artificial knee joint Procedures Left TKA Brief History This is a 89 year old female patient with severe left knee OA CBC/BMP: 10/12/16 0706 PE at Discharge LLE: dressings clean and dry. incision clean. minimal drainage. no erythema. good dorsiflexion of foot. full sensation Hospital Course The patient was admitted to the hospital for a left knee severe OA to have a left TKA. The patient was taken to surgery and had no complications. The patient is WBAT on the LLE. The patient is on Lovenox followed by ASA for DVT prophylaxis. The patient is on a regular diet. The patient was discharged to SNF. The patient will f/u with Dr. Giordano or CHARAN Landon as previously scheduled. Pt Condition on Discharge: Stable Discharge Disposition: Discharge to SNF Discharge Instructions Diet Instructions: As Tolerated, No Restrictions Activities You Can Perform: Weight Bearing as Fadia Activities to Avoid: Strenuous Activity Follow up Referrals: Orthopedics with Mushtaq Giordano MD New Medications: Aspirin (Aspirin) 325 Mg Tab 325 MG PO DAILY for Prevent Blood Clot, #30 TAB 0 Refills Start Aspirin after Lovenox is completed. Commode 3-in-1 (Commode 3-in-1) 1 Mis Mis EA .ROUTE DIRECTED, #1 0 Refills CPM-Continuous Passive Motion Machine (CPM-Continuous Passive Motion Machine) 1 Ea Device EA .ROUTE DIRECTED, #1 0 Refills Enoxaparin Inj (Lovenox Inj) 40 Mg/0.4 Ml Syr 40 MG SQ DAILY for Blood Clot Prevention, #10 SYRINGE 0 Refills Start Aspirin after Lovenox is completed. Hydrocodone-Acetaminophen ([place]) 5-325 mg Tab 1-2 TAB PO Q4H PRN for PAIN, #60 TAB 0 Refills Walker with Front Wheels (Walker with Front Wheels) 1 Mis Mis EA .ROUTE DIRECTED, #1 0 Refills Continued Medications: Amoxicillin (Amoxicillin) 500 Mg Cap 500 MG PO BID for Infection, CAP 0 Refills Atorvastatin (Atorvastatin) 40 Mg Tab 40 MG PO HS for Cholesterol Management, #30 TAB 0 Refills Levothyroxine (Synthroid) 25 Mcg Tab 50 MCG PO DAILY for Thyroid, #30 TAB 0 Refills Multiple Vitamins W/ Minerals (Ocuvite) 1 Tab 1 TAB PO DAILY for Nutritional Supplement, TAB 0 Refills Omeprazole (Omeprazole) 20 Mg Tab 20 MG PO DAILY, #30 TAB 0 Refills Ruy Umanzor Oct 15, 2016 16:48
== END 2016-10-12 14:02 | DRG 470 ==
LOC: HSDI 10-09 05:41 → N06B 10-09 15:02
PROVIDERS: ADMIT Orthopaedic Surgery; ATTEND Orthopaedic Surgery
PROC: 3E0T3CZ (ICD-10-PCS; 2016-10-09)
PROC: 0SRD0J9 Replacement of Left Knee Joint with Synthetic Substitute, Cemented, Open Approach (ICD-10-PCS; principal; 2016-10-09 08:20)
DX: M17.12 Unilateral primary osteoarthritis, left knee (principal); I10 Essential (primary) hypertension; E03.9 Hypothyroidism, unspecified; K21.9 Gastro-esophageal reflux disease without esophagitis; E78.5 Hyperlipidemia, unspecified; Z87.891 Personal history of nicotine dependence; R11.0 Nausea
CPT/HCPCS: 73560; 80053; 82948; 83735; 85027; 86850; 86900; 86901; 94150; C1713; C1776; J0131; J0171; J0690; J0735; J1100; J1580; J1650; J1885; J2250; J2270; J2370; J2405; J2795; J3370; J7030; J7050; J7120; L1830

== ENCOUNTER 2016-11-12 17:02 | Emergency (ER) | payer OTHER ==
[~2016-11-12] VITALS: Ht 152.4 cm; Wt 65.0 kg
[~2016-11-12 17:02] MED LIST: AMOX500C PO; ASPI325T PO; ATOR40TA16 PO; COMMODE 3-IN-11 MIS; CPMMACHINE; ENOX40P SQ; FISHCAP4 PO; NORC5TAB PO; OCUVTAB PO; OMEP20TA PO; SYNT25TA PO; WALKER WHEELS/F1 MIS
[2016-11-12 17:05] VITALS: BP 149/67; PULSE 76; RESP 20; TEMP 98.2; O2SAT 95
--- NOTE | 2016-11-12 17:27 | PD ---
HPI Chief Complaint: Pain: Acute or Chronic Time Seen by Provider: 17:22 Travel History International Travel<30 days: No Contact w/Intl Traveler<30days: No Traveled to known affect area: No History of Present Illness HPI 89-year-old female with history of left leg swelling for several months after getting and knee replacement by Dr. Giordano, presents to the ER today because ongoing swelling and discomfort. She denies any chest pains, shortness of breath, or any other symptoms. She was seen by the PA for her primary care physician today and was sent in for further evaluation. Patient is on Lasix regularly for this issue. Modifying Factors: None Associated Signs & Symptoms: Left leg swelling, pain for several months Risk Factors: Previous knee replacement surgery there, chronic edema since PFSH Past Medical History Arthritis: Yes Autoimmune Disease: No Blood Disorders: No Heart Rhythm Problems: No Cancer: No Cardiovascular Problems: No High Cholesterol: Yes Chemotherapy: No Chest Pain: No Congestive Heart Failure: No Cerebrovascular Accident: No Diabetes: No Diminished Hearing: No Endocrine: No Gastrointestinal Disorders: Yes Glaucoma: No Genitourinary: No Headaches: No Hepatitis: No Hiatal Hernia: No Immune Disorder: No Kidney Stones: No Musculoskeletal: Yes (ARTHRITIS) Neurologic: No Psychiatric: No Reproductive: No Respiratory: No Migraines: No Myocardial Infarction: No Radiation Therapy: No Renal Failure: No Seizures: No Sickle Cell Disease: No Sleep Apnea: No Thyroid Disease: Yes (HYPOTHYROID) Tetanus Vaccination: > 5 Years Menopausal: Yes Past Surgical History Abdominal Surgery: Yes AICD: No Appendectomy: Yes Arteriovenous Shunt: No Cardiac Surgery: No Ear Surgery: No Endocrine Surgery: No Eye Surgery: No Genitourinary Surgery: No Gynecologic Surgery: Yes Hysterectomy: Yes Insulin Pump: No Joint Replacement: No Oral Surgery: No Pacemaker: No Tonsillectomy: Yes Other Surgery: Yes (APPENDECTOMY, HYSTERECTOMY) Social History Alcohol Use: Yes (SOCIAL) Tobacco Use: No Substance Use: No Allergies-Medications (Allergen,Severity, Reaction): Coded Allergies: Sulfa (Sulfonamide Antibiotics) (Verified Allergy, Severe, Rash, 10/09/16) Reported Meds & Prescriptions Reported Meds & Active Scripts Active [place] (Hydrocodone-Acetaminophen) 5-325 mg Tab 1-2 Tab PO Q4H PRN Walker with Front Wheels (Device) 1 Mis Mis Ea .ROUTE DIRECTED Reported Fish Oil + D3 (Fish Oil-Cholecalciferol) 1,200-1,000 Mg-Unit Cap 1 Cap PO DAILY Omeprazole 20 Mg Tab 20 Mg PO DAILY Ocuvite (Multiple Vitamins W/ Minerals) 1 Tab 1 Tab PO DAILY Synthroid (Levothyroxine Sodium) 25 Mcg Tab 50 Mcg PO DAILY Review of Systems Except as stated in HPI: all other systems reviewed are Neg Physical Exam Narrative GENERAL: Well-developed elderly white female patient currently in mild distress. Awake and oriented 3. SKIN: Focused skin assessment warm/dry. HEAD: Atraumatic. Normocephalic. EYES: Pupils equal and round. No scleral icterus. No injection or drainage. ENT: No nasal bleeding or discharge. Mucous membranes pink and moist. NECK: Trachea midline. No JVD. CARDIOVASCULAR: Regular rate and rhythm. No murmur appreciated. RESPIRATORY: No accessory muscle use. Clear to auscultation. Breath sounds equal bilaterally. GASTROINTESTINAL: Abdomen soft, non-tender, nondistended. Hepatic and splenic margins not palpable. MUSCULOSKELETAL: No obvious deformities. No clubbing. No cyanosis. +3 left leg pitting edema, tenderness on palpation the calf. No sniffed and erythema. Neurovascularly intact. NEUROLOGICAL: Awake and alert. No obvious cranial nerve deficits. Motor grossly within normal limits. Normal speech. PSYCHIATRIC: Appropriate mood and affect; insight and judgment normal. Data Data Last Documented VS Vital Signs Date Time Temp Pulse Resp B/P (MAP) Pulse Ox O2 Delivery O2 Flow Rate FiO2 11/12/16 17:05 98.2 76 20 149/67 (94) 95 Room Air Orders Orders Complete Blood Count With Diff (11/12/16 17:22) Basic Metabolic Panel (Bmp) (11/12/16 17:22) Prothrombin Time / Inr (Pt) (11/12/16 17:22) Act Partial Throm Time (Ptt) (11/12/16 17:22) Us Leg Venous Doppler (11/12/16 17:22) Acetamin-Hydrocod 325-5 Mg ([place] 5-325 (11/12/16 17:45) Labs Laboratory Tests Test 11/12/16 17:35 White Blood Count 6.6 TH/MM3 Red Blood Count 4.31 MIL/MM3 Hemoglobin 12.8 GM/DL Hematocrit 38.3 % Mean Corpuscular Volume 88.7 FL Mean Corpuscular Hemoglobin 29.6 PG Mean Corpuscular Hemoglobin Concent 33.3 % Red Cell Distribution Width 15.0 % Platelet Count 221 TH/MM3 Mean Platelet Volume 8.2 FL Neutrophils (%) (Auto) 66.4 % Lymphocytes (%) (Auto) 23.2 % Monocytes (%) (Auto) 6.8 % Eosinophils (%) (Auto) 2.3 % Basophils (%) (Auto) 1.3 % Neutrophils # (Auto) 4.4 TH/MM3 Lymphocytes # (Auto) 1.5 TH/MM3 Monocytes # (Auto) 0.5 TH/MM3 Eosinophils # (Auto) 0.2 TH/MM3 Basophils # (Auto) 0.1 TH/MM3 CBC Comment DIFF FINAL Differential Comment Prothrombin Time 10.8 SEC Prothromb Time International Ratio 1.0 RATIO Activated Partial Thromboplast Time 24.8 SEC Blood Urea Nitrogen 17 MG/DL Creatinine 0.90 MG/DL Random Glucose 107 MG/DL Calcium Level 9.1 MG/DL Sodium Level 138 MEQ/L Potassium Level 3.4 MEQ/L Chloride Level 103 MEQ/L Carbon Dioxide Level 26.4 MEQ/L Anion Gap 9 MEQ/L Estimat Glomerular Filtration Rate 59 ML/MIN [facility] Medical Decision Making Medical Screen Exam Complete: Yes Emergency Medical Condition: Yes Medical Record Reviewed: Yes Interpretation(s) Laboratory Tests Test 11/12/16 17:35 Random Glucose 107 MG/DL (74-106) Potassium Level 3.4 MEQ/L (3.5-5.1) Estimat Glomerular Filtration Rate 59 ML/MIN (>89) Differential Diagnosis Left leg edema: Dependent edema versus CHF versus chronic venous stasis versus DVT versus cellulitis Narrative Course Ultrasound was ordered to rule out DVT. Physician Communication Physician Communication Case is signed out to Dr. Montes at 7 PM awaiting ultrasound. Diagnosis Primary Impression: Leg edema, left Condition: Stable Dillon Reyes MD Nov 12, 2016 17:27
[2016-11-12 17:44] LABS: AUTOMATED NEUTROPHIL # 4.4 TH/MM3 (1.8-7.7); BASOPHIL # 0.1 TH/MM3 (0-0.2); BASOPHIL % 1.3 % (0.0-2.0); EOSINOPHIL # 0.2 TH/MM3 (0-0.4); EOSINOPHIL % 2.3 % (0.0-4.0); HEMATOCRIT 38.3 % (35.0-46.0); HEMO FLAGS DIFF FINAL; LYMPH % 23.2 % (9.0-44.0); LYMPHOCYTE # 1.5 TH/MM3 (1.0-4.8); MEAN CELL VOLUME 88.7 FL (80.0-100.0); MEAN CORPUSCULAR HEMOGLOBIN 29.6 PG (27.0-34.0); MEAN CORPUSCULAR HGB CONC 33.3 % (32.0-36.0); MONO % 6.8 % (0.0-8.0); NEUT % 66.4 % (16.0-70.0); PLATELET COUNT 221 TH/MM3 (150-450); RED BLOOD COUNT 4.31 MIL/MM3 (4.00-5.30); WHITE BLOOD COUNT 6.6 TH/MM3 (4.0-11.0)
[2016-11-12] MEDS ORDERED: ACETAMINOPHEN/HYDROcodone 325 MG/5 MG TAB PO ONE (17:45)
[2016-11-12 17:53] LABS: APTT (PATIENT) 24.8 SEC (24.3-30.1); PROTHROMBIN TIME - PATIENT 10.8 SEC (9.8-11.6)
[2016-11-12 18:08] LABS: BICARBONATE 26.4 MEQ/L (21.0-32.0); POTASSIUM 3.4 MEQ/L (3.5-5.1)
[2016-11-12 19:02] VITALS: BP 146/67; PULSE 63; RESP 17; O2SAT 96
--- NOTE | 2016-11-12 19:20 | PD ---
Physical Exam Date Seen by Provider: Nov 12, 2016 Narrative Care was assumed at 7 PM pending ultrasound of the left lower extremity to rule out DVT. Briefly, this patient is status post a left total knee replacement on October 09. She reports tenuous pain and swelling in her left lower extremity since that time. She states that she has had 3 previous ultrasounds to look for DVT and that they have all been negative. Most recently, she was seen by her primary care provider who placed her on Lasix. She has been taking her Lasix for 3 days with no relief of the edema. She states that the primary care provider subsequently instructed her to come to the emergency department ultrasound. She denies any chest pain or shortness of breath. She admits that her leg has felt warm to the touch since the operation but that there is no change. She denies any systemic complaints such as fever or nausea or dizziness. On exam, she has pitting edema of the left lower extremity but no edema of the right lower extremity. The skin is diffusely warm to the touch. Her leg is diffusely tender to the touch. Data Data Last Documented VS Vital Signs Date Time Temp Pulse Resp B/P (MAP) Pulse Ox O2 Delivery O2 Flow Rate FiO2 11/12/16 19:03 62 17 11/12/16 19:02 146/67 (93) 96 Room Air 11/12/16 17:05 98.2 Orders Orders Complete Blood Count With Diff (11/12/16 17:22) Basic Metabolic Panel (Bmp) (11/12/16 17:22) Prothrombin Time / Inr (Pt) (11/12/16 17:22) Act Partial Throm Time (Ptt) (11/12/16 17:22) Us Leg Venous Doppler (11/12/16 17:22) Acetamin-Hydrocod 325-5 Mg ([place] 5-325 (11/12/16 17:45) Labs Laboratory Tests Test 11/12/16 17:35 White Blood Count 6.6 TH/MM3 Red Blood Count 4.31 MIL/MM3 Hemoglobin 12.8 GM/DL Hematocrit 38.3 % Mean Corpuscular Volume 88.7 FL Mean Corpuscular Hemoglobin 29.6 PG Mean Corpuscular Hemoglobin Concent 33.3 % Red Cell Distribution Width 15.0 % Platelet Count 221 TH/MM3 Mean Platelet Volume 8.2 FL Neutrophils (%) (Auto) 66.4 % Lymphocytes (%) (Auto) 23.2 % Monocytes (%) (Auto) 6.8 % Eosinophils (%) (Auto) 2.3 % Basophils (%) (Auto) 1.3 % Neutrophils # (Auto) 4.4 TH/MM3 Lymphocytes # (Auto) 1.5 TH/MM3 Monocytes # (Auto) 0.5 TH/MM3 Eosinophils # (Auto) 0.2 TH/MM3 Basophils # (Auto) 0.1 TH/MM3 CBC Comment DIFF FINAL Differential Comment Prothrombin Time 10.8 SEC Prothromb Time International Ratio 1.0 RATIO Activated Partial Thromboplast Time 24.8 SEC Blood Urea Nitrogen 17 MG/DL Creatinine 0.90 MG/DL Random Glucose 107 MG/DL Calcium Level 9.1 MG/DL Sodium Level 138 MEQ/L Potassium Level 3.4 MEQ/L Chloride Level 103 MEQ/L Carbon Dioxide Level 26.4 MEQ/L Anion Gap 9 MEQ/L Estimat Glomerular Filtration Rate 59 ML/MIN MDM Supervised Visit with MARLON: No Narrative Course CBC & BMP Diagram 11/12/16 17:35 Calcium Level 9.1 US neg. This patient indeed has a swollen left lower extremity similarly one month status post left total knee replacement. She has redness and warmth of her leg but a normal white count and no fever. She has pitting edema as well. This is been unresponsive to Lasix. I will discharge her to home with instructions to wear a compressive stocking on her left leg. Keep the leg elevated as much as she can. Follow-up with her primary care provider and/or orthopedic surgeon later this week. Diagnosis Primary Impression: Leg edema, left Patient Instructions: General Instructions, Leg Edema (ED), RICE Therapy (ED) Additional Instruction: Where a compressive stocking and keep your leg iced and elevated as much as possible. See your doctor within the next couple of days. Med/Other Pt SpecificInfo: Prescription(s) given Scripts Tramadol (Ultram) 50 Mg Tab 50 MG PO Q4H Y for PAIN, #12 TAB 0 Refills Prov: Emma Montes MD 11/12/16 Disposition: 01 DISCHARGE HOME Condition: Stable Emma Montes MD Nov 12, 2016 19:20
--- NOTE | 2016-11-12 19:48 | RADRPT ---
EXAM DATE/TIME: 11/12/2016 19:18 [facility] COMPARISON: CT ABDOMEN & PELVIS W/O CONTRAST, March 01, 2014, 23:49. INDICATIONS : Left leg edema. MEDICAL HISTORY : Hypercholesterolemia. Hypothyroidism. Arthritis. SURGICAL HISTORY : Tonsillectomy. Appendectomy. Hysterectomy. ENCOUNTER: Initial ACUITY: 2 weeks PAIN SCORE: 8/10 LOCATION: Left leg. TECHNIQUE: Venous ultrasound of the leg was performed from the inguinal ligament to the proximal calf. Real-moira e, color Doppler and spectral tracing, compression and augmentation techniques were used. FINDINGS: There is normal compressibility of the deep venous system from the inguinal region to the proximal ca lf. No echogenic clot is seen in the lumen of the common femoral, femoral, popliteal, and posterior tibial veins. There is a normal response of the venous system to proximal and distal augmentation an d respiration. CONCLUSION: No DVT seen. Vahe Nice MD on November 12, 2016 at 19:45 Board Certified Radiologist. This report was verified electronically.
[2016-11-12] MEDS ORDERED: ULTR50TA5 PO (19:53)
== END 2016-11-12 20:33 | disposition home or self-care (01) ==
LOC: NEPC 17:02
DX: R60.0 Localized edema (principal)
CPT/HCPCS: 80048; 85025; 85610; 85730; 93971

== ENCOUNTER 2016-12-19 09:17 | Observation (INO) | payer OTHER ==
[~2016-12-19] VITALS: Ht 157.5 cm; Wt 65.0 kg
[2016-12-19] VITALS (13 sets, daily range): BP systolic 133–220; BP diastolic 60–100; PULSE 61–81; RESP 16–20; TEMP 98.3–98.5; O2SAT 92–98
[~2016-12-19 09:17] MED LIST changes: -AMOX500C PO; -ASPI325T PO; -ATOR40TA16 PO; -COMMODE 3-IN-11 MIS; -CPMMACHINE; -ENOX40P SQ; -OMEP20TA PO; +OMEP20TA93 PO; +TRAM50 PO
[2016-12-19] MEDS ORDERED: SODIUM CHLOR 0.9% 1000 ML INJ 1,000 ML IV SCH (09:29)
[2016-12-19] MEDS ORDERED: SODIUM CHLORIDE 0.9% FLUSH 10 ML FLUSH IV FLUSH PRN ×2 (09:30→12:30)
[2016-12-19] MEDS ORDERED: FAMOTIDINE 20 MG/2 ML VIAL IV PUSH ONE (09:30)
[2016-12-19] MEDS ORDERED: ONDANSETRON HCL 4 MG/2 ML VIAL IVP ONE (09:30)
[2016-12-19] MEDS ORDERED: MORPHINE SULFATE 4 MG/ML INJ IV PUSH ONE ×2 (09:30→11:00)
--- NOTE | 2016-12-19 10:05 | PD ---
HPI Chief Complaint: Flank/Kidney Pain Time Seen by Provider: 09:23 Travel History International Travel<30 days: No Contact w/Intl Traveler<30days: No Traveled to known affect area: No History of Present Illness HPI Patient is an 89-year-old female who presents to emergency room with complaints of right-sided abdominal pain that radiates to her right flank. Patient reports that on Friday, she ate fresh corn, reports that around 3 AM that night , she began to feel sick. Patient reports that she has had episodes of nausea vomiting. Reports that she had decreased oral intake on Friday as she felt sick. Patient reports that she tried to eat a little flu last night, reports that she was not feeling any better. Patient reports that she has been having right-sided abdominal pain which radiates to her right flank. Patient reports that she has been feeling nauseous and has been vomiting up her symptoms, denies any diarrhea or constipation. Patient reports that she has not had any hematuria, urinary urgency or frequency. Patient denies history of kidney stones in the past. Patient reports her pain is constant and unrelenting. Patient reports that nothing makes pain better or worse. Patient reports only surgical history is of hysterectomy, appendectomy as well as orthopedic surgery in the past. Patient denies any fever or chills, denies any chest pain or shortness of breath. Patient reports that she currently is not taking any anticoagulants. PFSH Past Medical History Arthritis: Yes Autoimmune Disease: No Blood Disorders: No Heart Rhythm Problems: No Cancer: No Cardiovascular Problems: No High Cholesterol: Yes Chemotherapy: No Chest Pain: No Congestive Heart Failure: No Cerebrovascular Accident: No Diabetes: No Diminished Hearing: No Endocrine: No Gastrointestinal Disorders: Yes Glaucoma: No Genitourinary: No Headaches: No Hepatitis: No Hiatal Hernia: No Immune Disorder: No Kidney Stones: No Musculoskeletal: Yes (ARTHRITIS) Neurologic: No Psychiatric: No Reproductive: No Respiratory: No Migraines: No Myocardial Infarction: No Radiation Therapy: No Renal Failure: No Seizures: No Sickle Cell Disease: No Sleep Apnea: No Thyroid Disease: Yes (HYPOTHYROID) Menopausal: Yes Past Surgical History Abdominal Surgery: Yes AICD: No Appendectomy: Yes Arteriovenous Shunt: No Cardiac Surgery: No Ear Surgery: No Endocrine Surgery: No Eye Surgery: No Genitourinary Surgery: No Gynecologic Surgery: Yes Hysterectomy: Yes Insulin Pump: No Joint Replacement: No Oral Surgery: No Pacemaker: No Tonsillectomy: Yes Other Surgery: Yes (APPENDECTOMY, HYSTERECTOMY) Social History Alcohol Use: Yes (SOCIAL) Tobacco Use: No Substance Use: No Allergies-Medications (Allergen,Severity, Reaction): Coded Allergies: Sulfa (Sulfonamide Antibiotics) (Verified Allergy, Severe, Rash, 12/19/16) Reported Meds & Prescriptions Reported Meds & Active Scripts Active Ultram (Tramadol HCl) 50 Mg Tab 50 Mg PO Q4H PRN [place] (Hydrocodone-Acetaminophen) 5-325 mg Tab 1-2 Tab PO Q4H PRN Walker with Front Wheels (Device) 1 Mis Mis Ea .ROUTE DIRECTED Reported Atorvastatin (Atorvastatin Calcium) 40 Mg Tab 40 Mg PO HS Fish Oil + D3 (Fish Oil-Cholecalciferol) 1,200-1,000 Mg-Unit Cap 1 Cap PO DAILY Omeprazole 20 Mg Tab 20 Mg PO DAILY Ocuvite (Multiple Vitamins W/ Minerals) 1 Tab 1 Tab PO DAILY Synthroid (Levothyroxine Sodium) 25 Mcg Tab 50 Mcg PO DAILY Review of Systems General / Constitutional: No: Fever, Chills Eyes: No: Visual changes HENT: No: Headaches Cardiovascular: No: Chest Pain or Discomfort Respiratory: No: Shortness of Breath Gastrointestinal: Positive: Nausea, Vomiting, Abdominal Pain Genitourinary: No: Dysuria Musculoskeletal: No: Pain Skin: No Rash Neurologic: No: Weakness Psychiatric: No: Depression Endocrine: No: Polydipsia Hematologic/Lymphatic: No: Easy Bruising Physical Exam Narrative GENERAL: moderate distress SKIN: Focused skin assessment warm/dry. HEAD: Atraumatic. Normocephalic. EYES: Pupils equal and round. No scleral icterus. No injection or drainage. ENT: No nasal bleeding or discharge. Mucous membranes pink and moist. NECK: Trachea midline. No JVD. CARDIOVASCULAR: Regular rate and rhythm. No murmur appreciated. RESPIRATORY: No accessory muscle use. Clear to auscultation. Breath sounds equal bilaterally. GASTROINTESTINAL: Abdomen soft, increased tenderness to RLQ, nondistended. Hepatic and splenic margins not palpable. MUSCULOSKELETAL: No obvious deformities. No clubbing. No cyanosis. No edema. Patient with right sided flank pain on exam NEUROLOGICAL: Awake and alert. No obvious cranial nerve deficits. Motor grossly within normal limits. Normal speech. PSYCHIATRIC: Appropriate mood and affect; insight and judgment normal. Data Data Last Documented VS Vital Signs Date Time Temp Pulse Resp B/P (MAP) Pulse Ox O2 Delivery O2 Flow Rate FiO2 12/19/16 12:11 76 20 205/90 (128) 94 Room Air 12/19/16 09:19 98.5 Orders Orders Complete Blood Count With Diff (12/19/16 09:29) Comprehensive Metabolic Panel (12/19/16 09:29) Lipase (12/19/16 09:29) Prothrombin Time / Inr (Pt) (12/19/16:29) Act Partial Throm Time (Ptt) (12/19/16 09:29) Urinalysis - C+S If Indicated (12/19/16 09:29) Ct Abd/Pel W/O Iv Contrast (12/19/16:29) Iv Access Insert/Monitor (12/19/16 09:29) Ecg Monitoring (12/19/16:29) Oximetry (12/19/16 09:29) NPO (12/19/16 09:29) Morphine Inj (Morphine Inj) (12/19/16 09:30) Ondansetron Inj (Zofran Inj) (12/19/16 09:30) Sodium Chlor 0.9% 1000 Ml Inj (Ns 1000 M (12/19/16 09:29) Sodium Chloride 0.9% Flush (Ns Flush) (12/19/16 09:30) Chest, Single Ap (12/19/16 09:29) Famotidine Inj (Pepcid Inj) (12/19/16 09:30) Urine Culture (12/19/16 10:20) Ceftriaxone Inj (Rocephin Inj) (12/19/16 11:00) Morphine Inj (Morphine Inj) (12/19/16 11:00) Ondansetron Inj (Zofran Inj) (12/19/16 11:45) Ketorolac Inj (Toradol Inj) (12/19/16 12:00) Consult Urology (12/19/16 ) Tamsulosin (Flomax) (12/19/16 12:15) Ceftriaxone Inj (Rocephin Inj) (12/20/16 12:30) ^ Other Nursing Orders (12/19/16 12:18) Tamsulosin (Flomax) (12/20/16 09:00) Admit Order (Ed Use Only) (12/19/16 12:19) Labs Laboratory Tests Test 12/19/16 09:56 12/19/16 10:20 White Blood Count 6.3 TH/MM3 Red Blood Count 4.90 MIL/MM3 Hemoglobin 13.8 GM/DL Hematocrit 42.5 % Mean Corpuscular Volume 86.8 FL Mean Corpuscular Hemoglobin 28.2 PG Mean Corpuscular Hemoglobin Concent 32.4 % Red Cell Distribution Width 14.4 % Platelet Count 242 TH/MM3 Mean Platelet Volume 8.2 FL Neutrophils (%) (Auto) 71.2 % Lymphocytes (%) (Auto) 19.9 % Monocytes (%) (Auto) 6.6 % Eosinophils (%) (Auto) 1.3 % Basophils (%) (Auto) 1.0 % Neutrophils # (Auto) 4.5 TH/MM3 Lymphocytes # (Auto) 1.2 TH/MM3 Monocytes # (Auto) 0.4 TH/MM3 Eosinophils # (Auto) 0.1 TH/MM3 Basophils # (Auto) 0.1 TH/MM3 CBC Comment DIFF FINAL Differential Comment Prothrombin Time 10.5 SEC Prothromb Time International Ratio 1.0 RATIO Activated Partial Thromboplast Time 24.0 SEC Blood Urea Nitrogen 19 MG/DL Creatinine 0.99 MG/DL Random Glucose 115 MG/DL Total Protein 7.6 GM/DL Albumin 3.6 GM/DL Calcium Level 8.9 MG/DL Alkaline Phosphatase 120 U/L Aspartate Amino Transf (AST/SGOT) 46 U/L Alanine Aminotransferase (ALT/SGPT) 26 U/L Total Bilirubin 0.6 MG/DL Sodium Level 139 MEQ/L Potassium Level 4.4 MEQ/L Chloride Level 105 MEQ/L Carbon Dioxide Level 25.1 MEQ/L Anion Gap 9 MEQ/L Estimat Glomerular Filtration Rate 53 ML/MIN Lipase 99 U/L Urine Color YELLOW Urine Turbidity HAZY Urine pH 5.5 Urine Specific [place] 1.019 Urine Protein TRACE mg/dL Urine Glucose (UA) NEG mg/dL Urine Ketones NEG mg/dL Urine Occult Blood SMALL Urine Nitrite POS Urine Bilirubin NEG Urine Urobilinogen LESS THAN 2.0 MG/DL Urine Leukocyte Esterase SMALL Urine RBC 7 /hpf Urine WBC 7 /hpf Urine Squamous Epithelial Cells 3 /hpf Urine Bacteria FEW /hpf Urine Mucus FEW /lpf Microscopic Urinalysis Comment CULTURE INDICATED MDM Medical Decision Making Medical Screen Exam Complete: Yes Emergency Medical Condition: Yes Medical Record Reviewed: Yes Interpretation(s) Vital Signs Date Time Temp Pulse Resp B/P (MAP) Pulse Ox O2 Delivery O2 Flow Rate FiO2 12/19/16 09:19 98.5 81 16 220/100 (140) 98 Differential Diagnosis Kidney stone, pyelonephritis, uti, SBO, colitis, gastroenteritis Narrative Course Patient is an 89-year-old female who presents to emergency room complaints of nausea, vomiting and abdominal pain since Friday night During the course of the patients emergency department visit, the patients history, examination, and differential diagnosis were reviewed with the patient. The patient was placed on a child monitor with oximetry and frequent blood pressure monitoring. The patient had a 20-gauge IV access obtained and blood work sent for analysis. The patient was initially provided IV fluids, IV Zofran as well as IV Pepcid. The patients laboratory studies were reviewed and remarkable for Laboratory Tests Test 12/19/16 09:56 12/19/16 10:20 White Blood Count 6.3 TH/MM3 (4.0-11.0) Red Blood Count 4.90 MIL/MM3 (4.00-5.30) Hemoglobin 13.8 GM/DL (11.6-15.3) Hematocrit 42.5 % (35.0-46.0) Mean Corpuscular Volume 86.8 FL (80.0-100.0) Mean Corpuscular Hemoglobin 28.2 PG (27.0-34.0) Mean Corpuscular Hemoglobin Concent 32.4 % (32.0-36.0) Red Cell Distribution Width 14.4 % (11.6-17.2) Platelet Count 242 TH/MM3 (150-450) Mean Platelet Volume 8.2 FL (7.0-11.0) Neutrophils (%) (Auto) 71.2 % (16.0-70.0) Lymphocytes (%) (Auto) 19.9 % (9.0-44.0) Monocytes (%) (Auto) 6.6 % (0.0-8.0) Eosinophils (%) (Auto) 1.3 % (0.0-4.0) Basophils (%) (Auto) 1.0 % (0.0-2.0) Neutrophils # (Auto) 4.5 TH/MM3 (1.8-7.7) Lymphocytes # (Auto) 1.2 TH/MM3 (1.0-4.8) Monocytes # (Auto) 0.4 TH/MM3 (0-0.9) Eosinophils # (Auto) 0.1 TH/MM3 (0-0.4) Basophils # (Auto) 0.1 TH/MM3 (0-0.2) CBC Comment DIFF FINAL Differential Comment Prothrombin Time 10.5 SEC (9.8-11.6) Prothromb Time International Ratio 1.0 RATIO Activated Partial Thromboplast Time 24.0 SEC (24.3-30.1) Blood Urea Nitrogen 19 MG/DL (7-18) Creatinine 0.99 MG/DL (0.50-1.00) Random Glucose 115 MG/DL (74-106) Total Protein 7.6 GM/DL (6.4-8.2) Albumin 3.6 GM/DL (3.4-5.0) Calcium Level 8.9 MG/DL (8.5-10.1) Alkaline Phosphatase 120 U/L (45-117) Aspartate Amino Transf (AST/SGOT) 46 U/L (15-37) Alanine Aminotransferase (ALT/SGPT) 26 U/L (10-53) Total Bilirubin 0.6 MG/DL (0.2-1.0) Sodium Level 139 MEQ/L (136-145) Potassium Level 4.4 MEQ/L (3.5-5.1) Chloride Level 105 MEQ/L (98-107) Carbon Dioxide Level 25.1 MEQ/L (21.0-32.0) Anion Gap 9 MEQ/L (5-15) Estimat Glomerular Filtration Rate 53 ML/MIN (>89) Lipase 99 U/L (73-393) Urine Color YELLOW (YELLW/STRAW) Urine Turbidity HAZY (CLEAR) Urine pH 5.5 (5.0-8.5) Urine Specific [place] 1.019 (1.002-1.035) Urine Protein TRACE mg/dL (NEG-TRACE) Urine Glucose (UA) NEG mg/dL (NEG) Urine Ketones NEG mg/dL (NEG) Urine Occult Blood SMALL (NEG) Urine Nitrite POS (NEG) Urine Bilirubin NEG (NEG) Urine Urobilinogen LESS THAN 2.0 MG/DL (LESS Urine Leukocyte Esterase SMALL (NEG) Urine RBC 7 /hpf (0-3) Urine WBC 7 /hpf (0-5) Urine Squamous Epithelial Cells 3 /hpf (0-5) Urine Bacteria FEW /hpf (NONE) Urine Mucus FEW /lpf (OCC) Microscopic Urinalysis Comment CULTURE INDICATED UC sent, patient was given a dose of IV rocephin for her UTI Radiology studies were reviewed and remarkable for: Last Impressions Chest X-Ray 12/19/16 0929 Signed Impressions: Service Date/Time: December 09:34 - CONCLUSION: No acute disease. No evidence of free air in the abdomen. Jose C Sanchez MD CT of the abdomen and pelvis shows a 6 mm obstructing calculus in the distal right ureter causing hydronephrosis and hydroureter. Patient with intractable pain at this time, currently receiving her third dose of IV morphine. Patient will require admission to the hospital this time. Case reviewed with Dr. Shea, request IVF and plan to start patient on Flomax Case reviewed with who accepts patient to service Diagnosis Primary Impression: Hydronephrosis with obstructing calculus Additional Impressions: Intractable abdominal pain UTI (urinary tract infection) Admitting Information Admitting Physician Requests: Observation Татьяна Douglass DO Dec 19, 2016 10:05
[2016-12-19 10:13] LABS: AUTOMATED NEUTROPHIL # 4.5 TH/MM3 (1.8-7.7); BASOPHIL # 0.1 TH/MM3 (0-0.2); EOSINOPHIL # 0.1 TH/MM3 (0-0.4); EOSINOPHIL % 1.3 % (0.0-4.0); HEMATOCRIT 42.5 % (35.0-46.0); HEMO FLAGS DIFF FINAL; LYMPH % 19.9 % (9.0-44.0); LYMPHOCYTE # 1.2 TH/MM3 (1.0-4.8); MEAN CELL VOLUME 86.8 FL (80.0-100.0); MEAN CORPUSCULAR HEMOGLOBIN 28.2 PG (27.0-34.0); MEAN CORPUSCULAR HGB CONC 32.4 % (32.0-36.0); MONO % 6.6 % (0.0-8.0); NEUT % 71.2 % (16.0-70.0); PLATELET COUNT 242 TH/MM3 (150-450); RED CELL DISTRIBUTION WIDTH 14.4 % (11.6-17.2); WHITE BLOOD COUNT 6.3 TH/MM3 (4.0-11.0)
[2016-12-19] MEDS ORDERED: ATOR40TA16 PO (10:13)
--- NOTE | 2016-12-19 10:14 | RADRPT ---
EXAM DATE/TIME: 12/19/2016 09:34 [facility] COMPARISON: CHEST SINGLE AP, March 01, 2014, 16:36. INDICATIONS : Evaluate for free air MEDICAL HISTORY : Hypercholesterolemia. Hypothyroidism. Arthritis SURGICAL HISTORY : Tonsillectomy. Appendectomy. Hysterectomy ENCOUNTER: Initial ACUITY: 4 - 6 days PAIN SCORE: 0/10 LOCATION: chest FINDINGS: A single view of the chest demonstrates the lungs to be symmetrically aerated without evidence of mas s, infiltrate or effusion. The cardiomediastinal contours are unremarkable. Osseous structures are intact. There is no evidence of free air. CONCLUSION: No acute disease. No evidence of free air in the abdomen. Jose C Sanchez MD on December 19, 2016 at 10:12 Board Certified Radiologist. This report was verified electronically.
[2016-12-19 10:16] LABS: PROTHROMBIN TIME - PATIENT 10.5 SEC (9.8-11.6)
[2016-12-19 10:35] LABS: ALKALINE PHOSPHATASE 120 U/L (45-117); ALT (GPT) 26 U/L (10-53); BLOOD UREA NITROGEN 19 MG/DL (7-18); TOTAL BILIRUBIN ADULT 0.6 MG/DL (0.2-1.0)
[2016-12-19 10:40] LABS: ANION GAP 9 MEQ/L (5-15); AST (GOT) 46 U/L (15-37); BICARBONATE 25.1 MEQ/L (21.0-32.0); CHLORIDE 105 MEQ/L (98-107); GLOMERULAR FILTRATION RATE 53 ML/MIN (>89); SODIUM (NA) 139 MEQ/L (136-145)
[2016-12-19 10:41] LABS: BACTERIA, URINE FEW /hpf; BLOOD, URINE SMALL (NEG); COMMENT (UR) CULTURE INDICATED; CULTURE IF INDICATED CULTURE INDICATED; GLUCOSE,URINE NEG (NEG); KETONE, URINE NEG (NEG); MUCUS URINE FEW /lpf (OCC); NITRITE,URINE POS (NEG); PH, URINE 5.5 (5.0-8.5); SQUAMOUS EPITHELIAL CELL URINE 3 /hpf (0-5); URINE COLOR YELLOW (YELLW/STRAW)
[2016-12-19 10:48] LABS: POTASSIUM 4.4 MEQ/L (3.5-5.1)
[2016-12-19] MEDS ORDERED: cefTRIAXone INJ 1,000 MG in SODIUM CHLORIDE 0.9% INJ 100 ML IV ONE (11:00)
--- NOTE | 2016-12-19 11:44 | RADRPT ---
EXAM DATE/TIME: 12/19/2016 11:04 [facility] COMPARISON: CT ABDOMEN & PELVIS W/O CONTRAST, March 01, 2014, 23:49. INDICATIONS : Right sided abdominal pain since Friday. ORAL CONTRAST: No oral contrast ingested. RADIATION DOSE: 7.04 CTDIvol (mGy) MEDICAL HISTORY : None SURGICAL HISTORY : Hysterectomy. Appendectomy. ENCOUNTER: Initial ACUITY: 1 day PAIN SCALE: 6/10 LOCATION: Right flank TECHNIQUE: Volumetric scanning of the abdomen and pelvis was performed. Using automated exposure control and ad justment of the mA and/or kV according to patient size, radiation dose was kept as low as reasonably achievable to obtain optimal diagnostic quality images. DICOM format image data is available electro nically for review and comparison. FINDINGS: LOWER LUNGS: Chronic interstitial lung disease is identified in the bases. There is no evidence of consolidating i nfiltrate. LIVER: Homogeneous density without lesion. There is no dilation of the biliary tree. No calcified gallston es. SPLEEN: Multiple calcified granuloma are evident within the spleen. PANCREAS: Within normal limits. KIDNEYS: The right kidney has become markedly hydronephrotic. Several peripelvic cysts also appear to be prese nt. The right ureter is distended to the ureteral vesicle junction. A 5-6 mm calculus is identified w ithin the distal left ureter. The left renal collecting system appears stable. There appear to be multiple peripelvic cysts. T here is no evidence of hydroureter or ureterolithiasis. ADRENAL GLANDS: Within normal limits. VASCULAR: There is no aortic aneurysm. BOWEL/MESENTERY: The stomach, small bowel, and colon demonstrate no acute abnormality. There is no free intraperitone al air or fluid. ABDOMINAL WALL: Within normal limits. RETROPERITONEUM: There is no lymphadenopathy. BLADDER: No wall thickening or mass. REPRODUCTIVE: Within normal limits. INGUINAL: There is no lymphadenopathy or hernia. 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 CONCLUSION: 1. 6 mm obstructing calculus in the distal right ureter causing hydronephrosis and hydroureter. 2. Suspected bilateral peripelvic cysts. 3. Splenic granulomata and facet arthropathy again noted. Jose C Sanchez MD on December 19, 2016 at 11:35 Board Certified Radiologist. This report was verified electronically.
[2016-12-19] MEDS ORDERED: ONDANSETRON HCL 4 MG/2 ML VIAL IV PUSH ONE (11:45)
[2016-12-19] MEDS ORDERED: KETOROLAC TROMETHAMINE 30 MG/ML (IVP) VIAL IV PUSH ONE (12:00)
[2016-12-19] MEDS ORDERED: TAMSULOSIN HCL 0.4 MG CAP PO ONE (12:15)
[2016-12-19] MEDS ORDERED: NALOXONE HCL 0.4 MG/ML AMP IV PUSH PRN (12:30)
[2016-12-19] MEDS ORDERED: BISACODYL 10 MG SUPP RECTAL PRN (12:30)
[2016-12-19] MEDS ORDERED: LACTULOSE SYRUP 20 GM/30 ML CUP PO PRN (12:30)
[2016-12-19] MEDS ORDERED: MORPHINE SULFATE 2 MG/ML INJ IV PUSH PRN ×3 (12:30)
[2016-12-19] MEDS ORDERED: SENNOSIDES 8.6 MG TAB PO PRN (12:30)
[2016-12-19] MEDS ORDERED: ACETAMINOPHEN 325 MG TAB PO PRN ×2 (12:30)
[2016-12-19] MEDS ORDERED: ONDANSETRON HCL 4 MG/2 ML VIAL IVP PRN (12:30)
[2016-12-19] MEDS ORDERED: cloNIDine HCL 0.1 MG TAB PO PRN (12:30)
[2016-12-19] MEDS ORDERED: MAGNESIUM HYDROXIDE SUSP 30 ML CUP PO PRN (12:30)
[2016-12-19] MEDS ORDERED: ENALAPRILAT 1.25 MG/ML VIAL IV PUSH PRN (12:30)
--- NOTE | 2016-12-19 13:05 | HHI.HP ---
HPI Service [facility] Hospitalists Primary Care Physician Layo Carlos MD Admission Diagnosis Obstructing calculus with hydronephrosis Diagnoses: Chief Complaint: Abdominal pain Nausea/vomiting Travel History International Travel<30 Days: No Contact w/Intl Traveler <30 Da: No Traveled to Known Affected Are: No History of Present Illness Written by Anamaria Singh, acting as scribe for Dr. Cortez on 12/19/16 at 13: 02. This note was transcribed by scribe Anamaria Singh. I, Dr. Agustín Cortez personally performed the history, physical exam, and medical decision making; and confirmed the accuracy of the information in the transcribed note. Authenticated by Dr. Agustín Cortez on 12/19/16 at 13:23. 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 Patient states she began having symptoms on Friday night with intermittent right sided abdominal pain with radiation to the flank. She reports staying in bed all day Friday. Last night, patient had fresh corn for dinner. She woke up around 4:00 this morning in "agonizing pain". Patient reports 10 out of 10 constant sharp right-sided abdominal pain with radiation into the flank and back with associated nausea and vomiting. She reports feeling feverish at home. She endorses formed black stools. She denies any history of kidney stones in the past. She denies any hematuria, urinary urgency or frequency. She denies any diarrhea or constipation. Since her left total knee replacement she's had persistent painful swelling in the left lower extremity. She states she's and ruled out for a blood clots several times. She has an appointment upcoming with vascular surgeon for further evaluation. In the ED, CT of the abdomen and pelvis revealing a 6 mm obstructing calculus in the distal right ureter causing hydronephrosis and hydroureter. Review of Systems Except as stated in HPI: all other systems reviewed are Neg Past Family Social History Past Medical History Hypothyroidism Dyslipidemia GERD Osteoarthritis S post left total knee replacement Past Surgical History Status post left total knee replacement by Dr. Giordano 10/09/16 Appendectomy Hysterectomy Tonsillectomy Cataract surgery Reported Medications Ultram (Tramadol HCl) 50 Mg Tab 50 Mg PO Q4H PRN [place] (Hydrocodone-Acetaminophen) 5-325 mg Tab 1-2 Tab PO Q4H PRN Walker with Front Wheels (Device) 1 Mis Mis Ea .ROUTE DIRECTED Atorvastatin (Atorvastatin Calcium) 40 Mg Tab 40 Mg PO HS Fish Oil + D3 (Fish Oil-Cholecalciferol) 1,200-1,000 Mg-Unit Cap 1 Cap PO DAILY Omeprazole 20 Mg Tab 20 Mg PO DAILY Ocuvite (Multiple Vitamins W/ Minerals) 1 Tab 1 Tab PO DAILY Synthroid (Levothyroxine Sodium) 25 Mcg Tab 50 Mcg PO DAILY Allergies: Coded Allergies: Sulfa (Sulfonamide Antibiotics) (Verified Allergy, Severe, Rash, 12/19/16) Active Ordered Medications Current Medications Medications (Trade) Dose Ordered Sig/Ana Maria Route Start Time Stop Time Status Last Admin (NS Flush) 2 ml UNSCH PRN IV FLUSH 12/19/16 09:30 Ceftriaxone Sodium 1000 mg/ Sodium Chloride 100 ml @ 200 mls/hr Q24H IV 12/20/16 12:00 (Flomax) 0.4 mg DAILY PO 12/20/16 09:00 Sodium Chloride 1,000 ml @ 65 mls/hr [id number] IV 12/19/16 13:00 (NS Flush) 2 ml UNSCH PRN IV FLUSH 12/19/16 12:30 (NS Flush) 2 ml BID IV FLUSH 12/19/16 21:00 (Tylenol) 650 mg Q4H PRN PO 12/19/16 12:30 (Zofran Inj) 4 mg Q6H PRN IVP 12/19/16 12:30 (Tylenol) 650 mg Q6H PRN PO 12/19/16 12:30 (Toradol Inj) 15 mg Q6H IV PUSH 12/19/16 18:00 12/24/16 17:59 ([place] 5-325 Mg) 1 tab Q4H PRN PO 12/19/16 12:30 ([place] 10-325 Mg) 1 tab Q4H PRN PO 12/19/16 12:30 (Morphine Inj) 1 mg Q3H PRN IV PUSH 12/19/16 12:30 (Morphine Inj) 2 mg Q3H PRN IV PUSH 12/19/16 12:30 (Morphine Inj) 2 mg Q3H PRN IV PUSH 12/19/16 12:30 (Narcan Inj) 0.4 mg UNSCH PRN IV PUSH 12/19/16 12:30 (Melissa-Colace) 1 tab BID PO 12/19/16 21:00 (Milk Of Magnesia Liq) 30 ml Q12H PRN PO 12/19/16 12:30 (Senokot) 17.2 mg Q12H PRN PO 12/19/16 12:30 (Dulcolax Supp) 10 mg DAILY PRN RECTAL 12/19/16 12:30 (Lactulose Liq) 30 ml DAILY PRN PO 12/19/16 12:30 (Vasotec Inj) 1.25 mg Q6H PRN IV PUSH 12/19/16 12:30 (Catapres) 0.1 mg Q6H PRN PO 12/19/16 12:30 (Synthroid) 50 mcg DAILY@0600 PO 12/20/16 06:00 (Protonix) 20 mg DAILY PO 12/20/16 09:00 Family History Father, , coronary artery disease age 53 Mother, , natural causes age 102 Sister, alive, age 90 Social History She has a history of remote tobacco use having smoked 30-40 years ago. She reports social alcohol use. She denies any illicit drug use. Patient lives alone. Physical Exam Vital Signs Vital Signs Date Time Temp Pulse Resp B/P (MAP) Pulse Ox O2 Delivery O2 Flow Rate FiO2 12/19/16 12:11 76 20 205/90 (128) 94 Room Air 12/19/16 11:51 66 20 215/94 (134) 92 Room Air 12/19/16 10:45 61 20 192/81 (118) 94 Room Air 12/19/16 10:38 62 20 208/85 (126) 93 Room Air 12/19/16 10:30 67 20 203/81 (121) 96 Room Air 12/19/16 10:28 68 20 194/97 (129) 92 Room Air 12/19/16 09:19 98.5 81 16 220/100 (140) 98 Physical Exam GENERAL: This is a well-nourished, well-developed patient, in no apparent distress. Awake and alert. Friend at the bedside. SKIN: No rashes, ecchymoses or lesions. Cool and dry. HEAD: Atraumatic. Normocephalic. No temporal or scalp tenderness. EYES: Pupils equal round and reactive. Extraocular motions intact. No scleral icterus. No injection or drainage. ENT: Nose without bleeding or purulent drainage. Throat without erythema, tonsillar hypertrophy or exudate. Uvula midline. Airway patent. NECK: Trachea midline. No lymphadenopathy. Supple, nontender, no meningeal signs. CARDIOVASCULAR: Regular rate and rhythm without murmurs, gallops, or rubs. RESPIRATORY: Clear to auscultation. Breath sounds equal bilaterally. No wheezes , rales, or rhonchi. GASTROINTESTINAL: Abdomen soft, nondistended. (+) Tenderness to palpation right lower quadrant. No hepato-splenomegaly, or palpable masses. No guarding. MUSCULOSKELETAL: Extremities without clubbing or cyanosis. No joint tenderness, effusion, or edema noted. (+) Diffuse edema with associated tenderness left lower extremity. NEUROLOGICAL: Awake and alert. Able to move all extremities.. Motor and sensory grossly within normal limits. Five out of 5 muscle strength in all muscle groups. Normal speech. Laboratory Laboratory Tests Test 12/19/16 09:56 12/19/16 10:20 White Blood Count 6.3 Red Blood Count 4.90 Hemoglobin 13.8 Hematocrit 42.5 Mean Corpuscular Volume 86.8 Mean Corpuscular Hemoglobin 28.2 Mean Corpuscular Hemoglobin Concent 32.4 Red Cell Distribution Width 14.4 Platelet Count 242 Mean Platelet Volume 8.2 Neutrophils (%) (Auto) 71.2 Lymphocytes (%) (Auto) 19.9 Monocytes (%) (Auto) 6.6 Eosinophils (%) (Auto) 1.3 Basophils (%) (Auto) 1.0 Neutrophils # (Auto) 4.5 Lymphocytes # (Auto) 1.2 Monocytes # (Auto) 0.4 Eosinophils # (Auto) 0.1 Basophils # (Auto) 0.1 CBC Comment DIFF FINAL Differential Comment Prothrombin Time 10.5 Prothromb Time International Ratio 1.0 Activated Partial Thromboplast Time 24.0 Blood Urea Nitrogen 19 Creatinine 0.99 Random Glucose 115 Total Protein 7.6 Albumin 3.6 Calcium Level 8.9 Alkaline Phosphatase 120 Aspartate Amino Transf (AST/SGOT) 46 Alanine Aminotransferase (ALT/SGPT) 26 Total Bilirubin 0.6 Sodium Level 139 Potassium Level 4.4 Chloride Level 105 Carbon Dioxide Level 25.1 Anion Gap 9 Estimat Glomerular Filtration Rate 53 Lipase 99 Urine Color YELLOW Urine Turbidity HAZY Urine pH 5.5 Urine Specific [place] 1.019 Urine Protein TRACE Urine Glucose (UA) NEG Urine Ketones NEG Urine Occult Blood SMALL Urine Nitrite POS Urine Bilirubin NEG Urine Urobilinogen LESS THAN 2.0 Urine Leukocyte Esterase SMALL Urine RBC 7 Urine WBC 7 Urine Squamous Epithelial Cells 3 Urine Bacteria FEW Urine Mucus FEW Microscopic Urinalysis Comment CULTURE INDICATED Date/Time Source Procedure Growth Status 12/19/16 10:20 Urine Random Urine Urine Culture Pending Received Result Diagram: 12/19/1695512/19/16955 Imaging Last Impressions Chest X-Ray 12/19/16928 Signed Impressions: Service Date/Time: December 09:34 - CONCLUSION: No acute disease. No evidence of free air in the abdomen. Jose C Sanchez MD Abdomen/Pelvis CT 12/19/16928 Signed Impressions: Service Date/Time: December 11:04 - CONCLUSION: 1. 6 mm obstructing calculus in the distal right ureter causing hydronephrosis and hydroureter. 2. Suspected bilateral peripelvic cysts. 3. Splenic granulomata and facet arthropathy again noted. Jose C Sanchez MD Capmarieli VTE Risk Assessment Caprini VTE Risk Assessment: Mod/High Risk (score >= 2) Caprini Risk Assessment Model Point Value = 1 Point Value = 2 Point Value = 3 Point Value = 5 Age 41-60 Minor surgery BMI > 25 kg/m2 Swollen legs Varicose veins or History of unexplained or recurrent spontaneous Oral contraceptives or hormone replacement Sepsis (< 1 month) Serious lung disease, including pneumonia (< 1 month) Abnormal pulmonary function Acute myocardial infarction Congestive heart failure (< 1 month) History of inflammatory bowel disease Medical patient at bed rest Age 61-74 Arthroscopic surgery Major open surgery (> 45 min) Laparoscopic surgery (> 45 min) Malignancy Confined to bed (> 72 hours) Immobilizing plaster cast Central venous access Age >= 75 History of VTE Family history of VTE Factor V Leiden Prothrombin [id number] Lupus anticoagulant Anticardiolipin antibodies Elevated serum homocysteine Heparin-induced thrombocytopenia Other congenital or acquired thrombophilia Stroke (< 1 month) Elective arthroplasty Hip, pelvis, or leg fracture Acute spinal cord injury (< 1 month) Prophylaxis Regimen Total Risk Factor Score Risk Level Prophylaxis Regimen 0-1 Low Early ambulation 2 Moderate Order ONE of the following: *Sequential Compression Device (SCD) *Heparin 5000 units SQ BID 3-4 Higher Order ONE of the following medications: *Heparin 5000 units SQ TID *Enoxaparin/Lovenox 40 mg SQ daily (WT < 150 kg, CrCl > 30 mL/min) *Enoxaparin/Lovenox 30 mg SQ daily (WT < 150 kg, CrCl > 10-29 mL/min) *Enoxaparin/Lovenox 30 mg SQ BID (WT < 150 kg, CrCl > 30 mL/min) AND/OR *Sequential Compression Device (SCD) 5 or more Highest Order ONE of the following medications: *Heparin 5000 units SQ TID (Preferred with Epidurals) *Enoxaparin/Lovenox 40 mg SQ daily (WT < 150 kg, CrCl > 30 mL/min) *Enoxaparin/Lovenox 30 mg SQ daily (WT < 150 kg, CrCl > 10-29 mL/min) *Enoxaparin/Lovenox 30 mg SQ BID (WT < 150 kg, CrCl > 30 mL/min) AND *Sequential Compression Device (SCD) Assessment and Plan Problem List: (1) Hydronephrosis with obstructing calculus ICD Code: N13.2 - Hydronephrosis with renal and ureteral calculous obstruction Status: Acute Assessment and Plan 89-year-old female with a past medical history significant for hypothyroidism, dyslipidemia and osteoarthritis 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 Hydronephrosis with obstructing right-sided calculus Urinary colic with intractable pain - CT of abdomen and pelvis personally reviewed showing a 6 mm obstructing calculus in the distal right ureter causing hydronephrosis and hydroureter - Urology consulted on patient in the ED, appreciate recommendations - Supportive care - IV fluids - Pain management including Lortab and IV morphine with bowel regimen - IV Zofran prn nausea/vomiting - Continue to monitor kidney function - Avoid nephrotoxic agent Abnormal UA - UA suggestive of UTI - Patient asymptomatic - Begin empiric treatment with IV Rocephin - Follow up on urine culture results Uncontrolled hypertension - Patient denies history of hypertension - Secondary to pain - Vasotec 1.25 mg IV every 6 and/or Clonidine 0.1mg po q 6h when necessary - Continue to monitor BP Black stools - Stool Hemoccult - Hemoglobin and hematocrit normal at 13.8 and 42.5 respectively - PPI - Monitor H&H Hypothyroidism - Resume patient's home dose of levothyroxine 50 g daily OA s/p left TKR Persistent left lower extremity edema status post left TKR. Negative for DVT per patient - PT eval/treatment - Lower extremity elevation - Patient has upcoming appointment with vascular surgeon Dyslipidemia - Resume home dose of statin therapy GERD - PPI DVT prophylaxis - Bilateral SCD/LIZETTE hose Discussed Condition With Patient, friend, ED physician Anamaria Singh Dec 19, 2016 13:05 Agustín Cortez MD Dec 19, 2016 13:23
[2016-12-19] MEDS: ACETAMINOPHEN/HYDROcodone 325 MG/5 MG TAB PO PRN (13:24)
[2016-12-19] MEDS: SODIUM CHLOR 0.9% 1000 ML INJ 1,000 ML IV SCH (13:35)
[2016-12-19] MEDS ORDERED: KETOROLAC TROMETHAMINE 30 MG/ML (IVP) VIAL IV PUSH SCH (18:00)
[2016-12-19] MEDS: SODIUM CHLORIDE 0.9% FLUSH 10 ML FLUSH IV FLUSH SCH (21:00)
[2016-12-19] MEDS: DOCUSATE SODIUM 50 MG/SENNA 8.6 MG TAB PO SCH (21:00)
[2016-12-20] VITALS (12 sets, daily range): BP systolic 129–158; BP diastolic 67–80; PULSE 58–91; RESP 15–24; TEMP 97.6–98.5; O2SAT 91–97
[2016-12-20] MEDS: SODIUM CHLOR 0.9% 1000 ML INJ 1,000 ML IV SCH ×2 (05:18→22:06)
[2016-12-20] MEDS: LEVOTHYROXINE SODIUM 50 MCG TAB PO SCH (05:29)
--- NOTE | 2016-12-20 06:38 | RADRPT ---
EXAM DATE/TIME: 12/20/2016 05:43 [place] COMPARISON: CT ABDOMEN & PELVIS W/O CONTRAST, December 19, 2016, 11:04. ABDOMEN KUB ONLY, March 01, 2014, 16:4 2. INDICATIONS : Evaluate Renal Calculi MEDICAL HISTORY : None. SURGICAL HISTORY : Appendectomy. Hysterectomy. ENCOUNTER: Initial ACUITY: 1 day PAIN SCORE: 6/10 LOCATION: Bilateral Abdomen FINDINGS: The bowel gas pattern appears normal. No free air is identified. No organomegaly is evident. There is a 5 mm calcification in the region of the distal right ureter characteristic of stone. There are hayden cifications in the pelvis consistent with phleboliths. CONCLUSION: 1. 5 mm distal right ureteral stone8 Ray Carolina MD on December 20, 2016 at 6:34 Board Certified Radiologist. This report was verified electronically.
[2016-12-20] MEDS: SODIUM CHLORIDE 0.9% FLUSH 10 ML FLUSH IV FLUSH SCH ×2 (09:00→22:05)
[2016-12-20] MEDS ORDERED: NON-FORMULARY DRUG (Fish Oil-Cholecalciferol (Fish Oil + D3) 1 CAP) PO SCH (09:00)
[2016-12-20] MEDS ORDERED: TAMS5CAP PO (09:06)
--- NOTE | 2016-12-20 09:07 | HHI.DCPOC ---
Discharge Care Plan Diagnosis: (1) Renal stone (2) Hydronephrosis with obstructing calculus Goals to Promote Your Health * To prevent worsening of your condition and complications * To maintain your health at the optimal level Directions to Meet Your Goals Take your medications as prescribed Follow your dietary instruction Follow activity as directed Keep your appointments as scheduled Take your immunizations and boosters as scheduled If your symptoms worsen call your PCP, if no PCP go to Urgent Care Center or Emergency Room Smoking is Dangerous to Your Health. Avoid second hand smoke Call the 24-hour hour crisis hotline for domestic abuse at Rosalva Sheehan PA-C Dec 20, 2016 9:07 am
[2016-12-20] MEDS: DOCUSATE SODIUM 50 MG/SENNA 8.6 MG TAB PO SCH ×2 (09:55→22:05)
[2016-12-20] MEDS: TAMSULOSIN HCL 0.4 MG CAP PO SCH (09:55)
[2016-12-20] MEDS: PANTOPRAZOLE SOD 20 MG DELAYED RELEASE TAB PO SCH (09:55)
[2016-12-20] MEDS: ACETAMINOPHEN/HYDROcodone 325 MG/10 MG TAB PO PRN ×2 (10:02→18:22)
[2016-12-20 10:11] LABS: ALKALINE PHOSPHATASE 92 U/L (45-117); ALT (GPT) 19 U/L (10-53); ANION GAP 12 MEQ/L (5-15); AST (GOT) 19 U/L (15-37); BICARBONATE 20.1 MEQ/L (21.0-32.0); BLOOD UREA NITROGEN 16 MG/DL (7-18); CHLORIDE 110 MEQ/L (98-107); GLOMERULAR FILTRATION RATE 80 ML/MIN (>89); SODIUM (NA) 142 MEQ/L (136-145); TOTAL BILIRUBIN ADULT 0.3 MG/DL (0.2-1.0)
--- NOTE | 2016-12-20 10:52 | HHI.PR ---
Objective Vitals Vital Signs Date Time Temp Pulse Resp B/P (MAP) Pulse Ox O2 Delivery O2 Flow Rate FiO2 12/20/16 08:33 97 21 12/20/16 08:19 97.6 71 22 155/70 (98) 94 12/20/16 04:31 97.9 77 144/70 (94) 94 12/20/16 04:08 73 12/20/16 00:44 97 Nasal Cannula 2.00 12/20/16 00:34 98.0 69 15 129/68 (88) 91 12/20/16 00:03 58 12/19/16 21:02 92 21 12/19/16 20:58 65 12/19/16 19:29 98.3 76 16 133/60 (84) 93 12/19/16 18:44 97 12/19/16 16:06 12/19/16 15:06 62 20 140/65 (90) 97 12/19/16 13:07 68 20 184/79 (114) 95 Room Air 12/19/16 12:11 76 20 205/90 (128) 94 Room Air 12/19/16 11:51 66 20 215/94 (134) 92 Room Air I/O 12/19/16 12/19/16 12/19/16 12/20/16 12/20/16 12/20/16 07:00 15:00 23:00 07:00 15:00 23:00 Intake Total 1100 ml Output Total 300 ml 650 ml Balance 1100 ml -300 ml -650 ml Intake IV Total 1100 ml Output Urine Total 300 ml 650 ml # Voids 2 100 Result Diagram: 12/19/16 0956 12/20/16 0800 A/P Problem List: (1) Hydronephrosis with obstructing calculus ICD Code: N13.2 - Hydronephrosis with renal and ureteral calculous obstruction Status: Acute Agustín Cortez MD Dec 20, 2016 10:52
--- NOTE | 2016-12-20 11:50 | HHI.PR ---
Subjective Remarks Follow-up obstructive uropathy and UTI. Patient complaining of right lower quadrant pain. Discussed with RN Objective Vitals Vital Signs Date Time Temp Pulse Resp B/P (MAP) Pulse Ox O2 Delivery O2 Flow Rate FiO2 12/20/16 08:33 97 21 12/20/16 08:19 97.6 71 22 155/70 (98) 94 12/20/16 04:31 97.9 77 144/70 (94) 94 12/20/16 04:08 73 12/20/16 00:44 97 Nasal Cannula 2.00 12/20/16 00:34 98.0 69 15 129/68 (88) 91 12/20/16 00:03 58 12/19/16 21:02 92 21 12/19/16 20:58 65 12/19/16 19:29 98.3 76 16 133/60 (84) 93 12/19/16 18:44 97 12/19/16 16:06 12/19/16 15:06 62 20 140/65 (90) 97 12/19/16 13:07 68 20 184/79 (114) 95 Room Air 12/19/16 12:11 76 20 205/90 (128) 94 Room Air 12/19/16 11:51 66 20 215/94 (134) 92 Room Air I/O 12/19/16 12/19/16 12/19/16 12/20/16 12/20/16 12/20/16 07:00 15:00 23:00 07:00 15:00 23:00 Intake Total 1100 ml Output Total 300 ml 650 ml Balance 1100 ml -300 ml -650 ml Intake IV Total 1100 ml Output Urine Total 300 ml 650 ml # Voids 2 100 Result Diagram: 12/19/1695512/20/16799 Imaging Last Impressions Abdomen X-Ray 12/20/16599 Signed Impressions: Service Date/Time: Tuesday, December 20, 2016 05:43 - CONCLUSION: 1. 5 mm distal right ureteral stone8 Ray Carolina MD Chest X-Ray 12/19/16928 Signed Impressions: Service Date/Time: December 09:34 - CONCLUSION: No acute disease. No evidence of free air in the abdomen. Jose C Sanchez MD Abdomen/Pelvis CT 12/19/16928 Signed Impressions: Service Date/Time: December 11:04 - CONCLUSION: 1. 6 mm obstructing calculus in the distal right ureter causing hydronephrosis and hydroureter. 2. Suspected bilateral peripelvic cysts. 3. Splenic granulomata and facet arthropathy again noted. Jose C Sanchez MD Objective Remarks GENERAL: This is a well-nourished, well-developed patient, in no apparent distress. SKIN: No rashes, ecchymoses or lesions. Cool and dry. CARDIOVASCULAR: Regular rate and rhythm without murmurs, gallops, or rubs. RESPIRATORY: Clear to auscultation. Breath sounds equal bilaterally. No wheezes , rales, or rhonchi. GASTROINTESTINAL: Abdomen soft, nondistended. (+) Tenderness to palpation right lower quadrant. No guarding. MUSCULOSKELETAL: Extremities without clubbing or cyanosis. No joint tenderness, effusion, or edema noted. (+) Diffuse edema with associated tenderness left lower extremity. NEUROLOGICAL: Awake and alert. Able to move all extremities.. Motor and sensory grossly within normal limits. Five out of 5 muscle strength in all muscle groups. Normal speech. 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 Hydronephrosis with obstructing right-sided calculus. KUB today shows stone still in the distal ureter Urinary colic with intractable pain - CT of abdomen and pelvis personally reviewed showing a 6 mm obstructing calculus in the distal right ureter causing hydronephrosis and hydroureter - Urology consulted on patient in the ED, appreciate recommendations - Supportive care - IV fluids - Pain management including Lortab and IV morphine with bowel regimen - IV Zofran prn nausea/vomiting - Continue to monitor kidney function - Avoid nephrotoxic agent Abnormal UA - UA suggestive of UTI, urine culture with gram-negative malcolm - Patient asymptomatic -Continued empiric treatment with IV Rocephin - Follow up on urine culture results Uncontrolled hypertension - Patient denies history of hypertension - Secondary to pain - Vasotec 1.25 mg IV every 6 and/or Clonidine 0.1mg po q 6h when necessary - Continue to monitor BP Black stools - Stool Hemoccult - Hemoglobin and hematocrit normal at 13.8 and 42.5 respectively - PPI - Monitor H&H Hypothyroidism - Resume patient's home dose of levothyroxine 50 g daily OA s/p left TKR Persistent left lower extremity edema status post left TKR. Negative for DVT per patient - PT eval/treatment - Lower extremity elevation - Patient has upcoming appointment with vascular surgeon Dyslipidemia - Resume home dose of statin therapy GERD - PPI DVT prophylaxis - Bilateral SCD/LIZETTE hose Discharge Planning Not ready for discharge may need intervention Agustín Cortez MD Dec 20, 2016 11:50
[2016-12-20] MEDS ORDERED: cefTRIAXone INJ 1,000 MG in SODIUM CHLORIDE 0.9% INJ 100 ML IV SCH (12:00)
--- NOTE | 2016-12-20 14:04 | MB ---
cc: EFRAÍN ORDONEZ MD DATE OF CONSULTATION: 12/20/2016 REASON FOR CONSULTATION 1. One right distal ureteral stone. 2. Flank pain. HISTORY OF PRESENT ILLNESS The patient is an 89-year-old female with a past medical history significant for hypothyroidism and recurrent UTIs, who presented to [facility] ER with complaints of right-sided lower abdominal pain radiating to the right flank for four days. She started having symptoms on Friday night with intermittent right side abdominal pain radiating to the flank associated with some mild nausea. The pain was 12/10 and described as sharp and stabbing going right through her right side to her right back. She also experienced subjective chills. In the ER she had a CT of the abdomen and pelvis without contrast which showed a 6 mm stone in the right distal ureter causing mild hydronephrosis. She was admitted for pain control and urology was consulted. She denied any hematuria, urinary urgency or frequency. She does have a history of recurrent UTIs in the past and was recently evaluated by my partner, Dr. Berry. She denies prior history of kidney stones in the past as well. Currently her pain is now down to 1 or 2 and she describes it more as an ache. She feels significantly better than when she came in yesterday. REVIEW OF SYSTEMS See HPI. All systems reviewed are otherwise negative. PAST MEDICAL HISTORY 1. Hypothyroidism. 2. UTI. 3. Dyslipidemia. 4. GERD. 5. Osteoarthritis. PAST SURGICAL HISTORY 1. Appendectomy. 2. Hysterectomy. 3. Tonsillectomy. 4. Status post left total knee replacement by Dr. Giordano. MEDICATIONS 1. Omeprazole. 2. Synthroid. 3. Loving. 4. Ultram. ALLERGIES SULFA. FAMILY HISTORY Denies urolithiasis or genitourinary malignancies. SOCIAL HISTORY She has a history of remote tobacco use, approximately 30 or 40 years ago. She does occasionally drink alcohol. Denies any illicit drugs. Lives alone. PHYSICAL EXAMINATION VITAL SIGNS: Temperature 98.5, pulse 65, respiratory rate 24, blood pressure 158/72. Sat 95% on room air. GENERAL: Alert and oriented x3, in no apparent distress, pleasant and cooperative lady who appears younger than her stated age. HEAD: Normocephalic, atraumatic. EYES: No scleral icterus. Extraocular muscles intact. NECK: Supple. Trachea is midline. No JVD. LUNGS: Clear to auscultation bilaterally. No wheezes, rales or rhonchi. HEART: Regular rate and rhythm. No murmurs, gallops or rubs. ABDOMEN: Soft, nontender, nondistended. Positive bowel sounds. GENITOURINARY: No CVA tenderness bilaterally. Pelvic exam not indicated at this time. EXTREMITIES: 2+ left lower extremity edema, slightly tender. PSYCH: Normal affect. NEUROLOGIC: Cranial nerves II through XII intact. Strength 5/5 in three out of four extremities. She is weak in her left lower extremity due to recent surgery. SKIN: No ulcers or rashes. Mucous membranes pink and moist. LABORATORY White count 6.3, hemoglobin 13.8, hematocrit 42.5, platelet count 242. Sodium 142, creatinine 0.69, BUN 16. Urine positive for nitrite, small blood, small leukocyte esterase. Urine culture growing out Gram-negative rods. IMAGING CT of the abdomen and pelvis without contrast images reviewed. Agree with the radiologist's report. The patient has a distal 5 mm right ureteral stone with mild hydronephrosis. ASSESSMENT The patient is an 89-year-old female with a history of recurrent UTIs who presented to [place] ER with right side abdominal pain and nausea, and was found to have a distal right ureteral stone with mild hydronephrosis. PLAN Recommend conservative management. She wants a trial of passage. Will recommend Flomax 0.4 mg daily, IV fluids and pain control. I asked her to strain all her urine. Recommend continuing antibiotics as an outpatient based on her recent urine culture. She can follow-up with my partner, Dr. Berry, as an outpatient for possible treatment of the stone if she has not passed it. Thank you for this consult. Please call if any questions. Efraín Ordonez MD EMYocasta/VENKAT /1:17 PM /1:38 PM
[2016-12-21] VITALS (7 sets, daily range): BP systolic 113–192; BP diastolic 56–77; PULSE 56–71; RESP 16–18; TEMP 97.4–98.2; O2SAT 92–96
[2016-12-21] MEDS: LEVOTHYROXINE SODIUM 50 MCG TAB PO SCH (05:10)
[2016-12-21] MEDS: ACETAMINOPHEN/HYDROcodone 325 MG/5 MG TAB PO PRN (05:10)
[2016-12-21] MEDS: SODIUM CHLORIDE 0.9% FLUSH 10 ML FLUSH IV FLUSH SCH (09:00)
[2016-12-21] MEDS: PANTOPRAZOLE SOD 20 MG DELAYED RELEASE TAB PO SCH (09:42)
[2016-12-21] MEDS: TAMSULOSIN HCL 0.4 MG CAP PO SCH (09:42)
[2016-12-21] MEDS: DOCUSATE SODIUM 50 MG/SENNA 8.6 MG TAB PO SCH (09:42)
[2016-12-21] MEDS ORDERED: NORC5TAB PO (11:04)
[2016-12-21] MEDS: SODIUM CHLOR 0.9% 1000 ML INJ 1,000 ML IV SCH (11:12)
--- NOTE | 2016-12-21 13:56 | HHI.DS ---
Discharge Summary Admission Date Dec 19, 2016 at 12:22 Discharge Date: Dec 21, 2016 Admitting Diagnosis Obstructing calculus with hydronephrosis (1) Hydronephrosis with obstructing calculus ICD Code: N13.2 - Hydronephrosis with renal and ureteral calculous obstruction Status: Acute Procedures none Brief History - From Admission Written by Anamaria Singh, acting as scribe for Dr. Cortez on 12/19/16 at 13: 02. This note was transcribed by scribe Anamaria Singh. I, Dr. Agustín Cortez personally performed the history, physical exam, and medical decision making; and confirmed the accuracy of the information in the transcribed note. Authenticated by Dr. Agustín Cortez on 12/19/16 at 13:23. This is a 89-year-old female with a past medical history significant for hypothyroidism, dyslipidemia and osteoarthritis status post left total knee replacement 10/09/16 who presents to [facility] with complaints of severe right-sided abdominal pain 4 days. Patient states she began having symptoms on Friday night with intermittent right sided abdominal pain with radiation to the flank. She reports staying in bed all day Friday. Last night, patient had fresh corn for dinner. She woke up around 4:00 this morning in "agonizing pain". Patient reports 10 out of 10 constant sharp right-sided abdominal pain with radiation into the flank and back with associated nausea and vomiting. She reports feeling feverish at home. She endorses formed black stools. She denies any history of kidney stones in the past. She denies any hematuria, urinary urgency or frequency. She denies any diarrhea or constipation. Since her left total knee replacement she's had persistent painful swelling in the left lower extremity. She states she's and ruled out for a blood clots several times. She has an appointment upcoming with vascular surgeon for further evaluation. In the ED, CT of the abdomen and pelvis revealing a 6 mm obstructing calculus in the distal right ureter causing hydronephrosis and hydroureter. CBC/BMP: 12/19/16 0956 12/20/16 0800 Significant Findings Laboratory Tests Test 12/19/16 09:56 12/19/16 10:20 12/20/16 08:00 Neutrophils (%) (Auto) 71.2 % (16.0-70.0) Activated Partial Thromboplast Time 24.0 SEC (24.3-30.1) Blood Urea Nitrogen 19 MG/DL (7-18) Random Glucose 115 MG/DL (74-106) Alkaline Phosphatase 120 U/L (45-117) Aspartate Amino Transf (AST/SGOT) 46 U/L (15-37) Estimat Glomerular Filtration Rate 53 ML/MIN (>89) 80 ML/MIN (>89) Urine Turbidity HAZY (CLEAR) Urine Occult Blood SMALL (NEG) Urine Nitrite POS (NEG) Urine Leukocyte Esterase SMALL (NEG) Urine RBC 7 /hpf (0-3) Urine WBC 7 /hpf (0-5) Urine Bacteria FEW /hpf (NONE) Urine Mucus FEW /lpf (OCC) Total Protein 5.9 GM/DL (6.4-8.2) Albumin 2.7 GM/DL (3.4-5.0) Chloride Level 110 MEQ/L (98-107) Carbon Dioxide Level 20.1 MEQ/L (21.0-32.0) Imaging Last Impressions Abdomen X-Ray 12/20/16 0600 Signed Impressions: Service Date/Time: Tuesday, December 20, 2016 05:43 - CONCLUSION: 1. 5 mm distal right ureteral stone8 Ray Carolina MD Chest X-Ray 12/19/16928 Signed Impressions: Service Date/Time: December 09:34 - CONCLUSION: No acute disease. No evidence of free air in the abdomen. Jose C Sanchez MD Abdomen/Pelvis CT 12/19/16928 Signed Impressions: Service Date/Time: December 11:04 - CONCLUSION: 1. 6 mm obstructing calculus in the distal right ureter causing hydronephrosis and hydroureter. 2. Suspected bilateral peripelvic cysts. 3. Splenic granulomata and facet arthropathy again noted. Jose C Sanchez MD PE at Discharge GENERAL: This is a well-nourished, well-developed patient, in no apparent distress. SKIN: No rashes, ecchymoses or lesions. Cool and dry. CARDIOVASCULAR: Regular rate and rhythm without murmurs, gallops, or rubs. RESPIRATORY: Clear to auscultation. Breath sounds equal bilaterally. No wheezes , rales, or rhonchi. GASTROINTESTINAL: Abdomen soft, nondistended. (+) Improving Tenderness to palpation right lower quadrant. No guarding. MUSCULOSKELETAL: Extremities without clubbing or cyanosis. No joint tenderness, effusion, or edema noted. (+) Diffuse edema with associated tenderness left lower extremity. NEUROLOGICAL: Awake and alert. Able to move all extremities.. Motor and sensory grossly within normal limits. Five out of 5 muscle strength in all muscle groups. Normal speech. Hospital Course 89-year-old female with a past medical history significant for hypothyroidism, dyslipidemia and osteoarthritis status post left total knee replacement 10/09/16 who presents to [facility] with complaints of severe right-sided abdominal pain 4 days. Hydronephrosis with obstructing right-sided calculus. KUB today shows stone still in the distal ureter Urinary colic with intractable pain. Resolved - CT of abdomen and pelvis personally reviewed showing a 6 mm obstructing calculus in the distal right ureter causing hydronephrosis and hydroureter - Urology consulted on patient in the ED, appreciate recommendations. Conservative management at this time. Outpatient follow-up. - Supportive care - Status post IV fluids - Pain management including Lortab and IV morphine with bowel regimen - IV Zofran prn nausea/vomiting - Continue to monitor kidney function - Avoid nephrotoxic agent Abnormal UA - UA suggestive of UTI, urine culture with Klebsiella switch to Cipro aware of possible tendon rupture - Patient asymptomatic Uncontrolled hypertension - Patient denies history of hypertension - Secondary to pain - Vasotec 1.25 mg IV every 6 and/or Clonidine 0.1mg po q 6h when necessary - Continue to monitor BP Black stools - Stool Hemoccult - Hemoglobin and hematocrit normal at 13.8 and 42.5 respectively - PPI - Monitor H&H Hypothyroidism - Resume patient's home dose of levothyroxine 50 g daily OA s/p left TKR Persistent left lower extremity edema status post left TKR. Negative for DVT per patient - PT eval/treatment - Lower extremity elevation - Patient has upcoming appointment with vascular surgeon Dyslipidemia - Resume home dose of statin therapy GERD - PPI DVT prophylaxis - Bilateral SCD/LIZETTE hose Pt Condition on Discharge: Stable Discharge Disposition: Discharge Home Discharge Time: > 30 minutes Discharge Instructions DIET: Follow Instructions for: Heart Healthy Diet Activities you can perform: Regular-No Restrictions Follow up Referrals: PCP Follow-up - 2-3 Days with Layo Carlos MD Urology - 1 Week with Efraín Shea MD New Medications: Ciprofloxacin (Cipro) 250 Mg Tab 250 MG PO Q12HR for Infection, #10 TAB Tamsulosin (Flomax) 0.4 Mg Cap 0.4 MG PO DAILY for kidney stone, #14 CAP Changed Medications: Hydrocodone-Acetaminophen ([place]) 5-325 mg Tab 1-2 TAB PO Q6HR PRN for PAIN, #12 TAB 0 Refills (Changed from: Q4H; 60) Continued Medications: Atorvastatin (Atorvastatin) 40 Mg Tab 40 MG PO HS for Cholesterol Management, TAB 0 Refills Fish Oil-Cholecalciferol (Fish Oil + D3) 1,200-1,000 Mg-Unit Cap 1 CAP PO DAILY for Nutritional Supplement, #30 CAP 0 Refills Levothyroxine (Synthroid) 25 Mcg Tab 50 MCG PO DAILY for Thyroid, #30 TAB 0 Refills Multiple Vitamins W/ Minerals (Ocuvite) 1 Tab 1 TAB PO DAILY for Nutritional Supplement, TAB 0 Refills Omeprazole (Omeprazole) 20 Mg Tab 20 MG PO DAILY, #30 TAB 0 Refills Walker with Front Wheels (Walker with Front Wheels) 1 Mis Mis EA .ROUTE DIRECTED, #1 0 Refills Discontinued Medications: Tramadol (Ultram) 50 Mg Tab 50 MG PO Q4H PRN for PAIN, #12 TAB 0 Refills Agustín Cortez MD Dec 21, 2016 13:56
[2016-12-21] MEDS ORDERED: CIPR250T52 PO (13:57)
[2016-12-21] MEDS ORDERED: CIPROFLOXACIN 250 MG TAB PO SCH (21:00)
== END 2016-12-21 13:24 | disposition home or self-care (01) ==
LOC: NEPD 09:17 → NEDA 12:22 → NEPHCDU 16:38
PROVIDERS: ADMIT Internal Medicine; ATTEND Internal Medicine
DX: N13.2 Hydronephrosis with renal and ureteral calculous obstruction (principal); R60.0 Localized edema; N39.0 Urinary tract infection, site not specified; R19.5 Other fecal abnormalities; I10 Essential (primary) hypertension; E78.00 Pure hypercholesterolemia, unspecified; J84.9 Interstitial pulmonary disease, unspecified; E03.9 Hypothyroidism, unspecified; K21.9 Gastro-esophageal reflux disease without esophagitis; M17.12 Unilateral primary osteoarthritis, left knee; Z79.899 Other long term (current) drug therapy; Z87.891 Personal history of nicotine dependence; Z96.652 Presence of left artificial knee joint
CPT/HCPCS: 71010; 74000; 74176; 80053; 81001; 83690; 85025; 85610; 85730; 87077; 87086; 87186; 96361; 96365; 96375; 96376; 99285; G0378; J0696; J1885; J2270; J2405; J7030

== ENCOUNTER 2017-01-20 13:17 | Day surgery (SDC) | payer OTHER ==
[~2017-01-20 13:17] MED LIST changes: +ATOR40TA16 PO; +CIPR250T52 PO; +TAMS5CAP PO; -TRAM50 PO
[2017-01-20] MEDS ORDERED: SODIUM CHLORIDE FLUSH PRN IV FLUSH (14:00)
[2017-01-20] MEDS ORDERED: TRAM50TA PO (14:35)
[2017-01-20] MEDS ORDERED: NITR0.4S SL (14:35)
[2017-01-20] MEDS ORDERED: VITA100064 PO (14:35)
[2017-01-20] MEDS ORDERED: MULTTAB25 (14:35)
[2017-01-20] MEDS ORDERED: MELO15TA20 PO (14:35)
[2017-01-20] MEDS ORDERED: ALBUAER3 INH (14:35)
[2017-01-20] MEDS ORDERED: BENZ1CAP51 PO (14:35)
--- NOTE | 2017-01-20 14:56 | PD.VS.PN ---
Pre-operative Note Pre-operative diagnosis: L LE venous insufficiency, GSV BK Planned procedure: L GSV RFA Interval History: Pt has been feeling well, no changes in health since I saw her in clinic. Labs: none needed Blood: none EKG: none Imaging: Ultrasound reviewed Orders: NPO Kezfol 2g IV OCTOR Post-operative destination: DOCU Operative site marked: Yes Consent: Informed consent has been obtained from Cher Perez. I have explained the procedure in detail and discussed the risks, benefits, and potential complications. All questions have been answered. Kang Navas MD Jan 20, 2017 14:56
[2017-01-20] MEDS ORDERED: MIDAZOLAM HCL 5 MG/5 ML VIAL ONE (14:58)
[2017-01-20] MEDS ORDERED: ceFAZolin INJ 1,000 MG VIAL ONE (14:58)
[2017-01-20] MEDS ORDERED: SODIUM BICARBONATE 8.4% INJ 50 ML ONE (14:58)
[2017-01-20] MEDS ORDERED: LIDOCAINE HCL 1% PF 30 ML VIAL ONE (14:58)
[2017-01-20 15:26] VITALS: BP 158/82; PULSE 74; RESP 18; TEMP 97.7; O2SAT 94
[2017-01-20] MEDS ORDERED: HEPARIN-NS/PF INJ 500 ML ONE (15:26)
[2017-01-20] MEDS ORDERED: MIDAZOLAM HCL 2 MG/2 ML VIAL ONE (15:42)
--- NOTE | 2017-01-20 15:54 | HHI.PR ---
Immediate Post Op Note Procedure Date: Jan 20, 2017 Pre Op Diagnosis: L LE venous insufficiency Post Op Diagnosis: L LE venous insufficiency Surgeon: Kang Navas Window Assembler(s): Pam Ontiveros Procedure: L GSV RFA Findings: successful ablation Additional Information: carolann well Complications: none Specimen(s) removed: none Estimated blood loss: 5mL Anesthesia: MAC, Spinal Patient to: Other (DOCU) Patient Condition: Good Date/Time of Procedure: SEE SURGICAL CARE RECORD Kang Navas MD Jan 20, 2017 15:54
--- NOTE | 2017-01-20 16:12 | CATHPROC ---
[employer] HIS Report Study Information Study Number Admission Scheduled Start Study Start [id number] Jan 20 2017 1:17PM 01/20/2017 Jan 20 2017 3:14PM Regan Service Cath Endovascular Study Admit Source Facility Department Other [facility] - Fund Director Physician and Clinical Staff Initial MD Navas, Kang Rushing RN, Malachi Anders,RT(R) Scrub Rodolfo Lopes,RT(R) Equipment Time Lawn Care Professional Description Size Mfg Part Number Used/Scraped [id number] 15:36 [employer], NITONOL 80CM 80CM Used *[id number] CATHETER, FR7 CLOSURE FAST [id number] 15:35 BUNDLE-MEDTRON[employer] 100CM Used RFA 100CM *[id number] 15:35 [employer]UND[employer] PACK, [employer] CLOSUREFAST CFP *[id number] Used SHEATH, FR7 CLOSURE FAST [id number] 15:35 BUNDLE-MEDTRONIC 7CM Used MICROINTRODUCER *[id number] KIT, CLOSURE FAST TUMESCENT 15:35 MEDTRONIC TIK-01 *[id number] Used INFILTRATION History: Current Medications Medication Dosage/Unit Route Frequency Last Date/Time Taken LIPITOR Prilosec Ultram NTG SL History: Allergies Allergy Reaction Sulfa (Sulfonamide Antibiotics) Rash History: Risk Factors Family History of Hypertension Dyslipidemia Previous ME Previous Heart Failure Premature CAD No Yes No No No Prior Valve Prior PCI Prior CABG Surgery No No No Cerebrovascular Peripheral Artery Chronic Lung On Dialysis Diabetes Disease Disease Disease No No Yes Yes No History: Stress Tests Stress or Imaging Studies Performed No History: Other Current Smoker No Labs Hgb (g/dl) Hct (%) WBC (l/cumm) Platelets (thousands) 11.60-17.00 35.00-51.00 4.00-11.00 150.00-450.00 8.7 26.4 11.3 379 Glucose (mg/dl) BUN (mg/dl) Creatinine (mg/dl) BUN:Creatinine (1:x) 74.00-106.00 7.00-18.00 0.50-1.30 10.00-20.00 125 72 12.3 5.9 Na (meq/l) K (meq/l) 136.00-145.00 3.50-5.10 131 4.7 INR (PTT:PT) 0.90-1.10 1.2 CPK-MB (ng/ML) 0.50-3.60 Not Drawn Medication Medication Total Dose (Bolus/Oral) Medication Total Dosage/Unit 1% XYLOCAINE 20 mL FENTANYL 150 mcg VERSED 6 mg Medications (Bolus/Oral) Medication Time Given Dosage/Unit Administered By Reason VERSED 01/20/2017 3:30:39 PM 2 mg Dave Rushing RN 2 mg VERSED given in lab by Dave Rushing RN via Peripheral IV. FENTANYL 01/20/2017 3:30:43 PM 50 mcg Dave Rushing RN 50 mcg FENTANYL given in lab by Dave Rushing RN via Peripheral IV. 1% XYLOCAINE 01/20/2017 3:32:32 PM 20 mL Dave Rushing RN 20 mL 1% XYLOCAINE given in lab by Dave Rushing RN via Subcutaneous. Left leg guided by ultrasound. FENTANYL 01/20/2017 3:32:49 PM 25 mcg Dave Rushing RN 25 mcg FENTANYL given in lab by Dave Rushing RN via Peripheral IV. VERSED 01/20/2017 3:33:03 PM 1 mg Dave Rushing RN 1 mg VERSED given in lab by Dave Rushing RN via Peripheral IV. FENTANYL 01/20/2017 3:40:36 PM 25 mcg Dave Rushing RN 25 mcg FENTANYL given in lab by Dave Rushing RN via Peripheral IV. VERSED 01/20/2017 3:41:50 PM 2 mg Dave Rushing RN 2 mg VERSED given in lab by Dave Rushing RN via Peripheral IV. FENTANYL 01/20/2017 3:45:10 PM 50 mcg Dave Rushing RN 50 mcg FENTANYL given in lab by Dave Rushing RN via Peripheral IV. VERSED 01/20/2017 3:46:09 PM 1 mg Dave Rushing RN 1 mg VERSED given in lab by Dave Rushing RN via Peripheral IV. Medication (Drip) Medication Time Given Dosage/Unit Concentration/Unit Diluent (ml) Solution ANCEF 01/20/2017 3:22:45 PM 2 g 2 g ANCEF given in lab by Dave Rushing RN in Left Forearm via Peripheral IV. IV Solutions 01/20/2017 3:18:11 PM 0 mL (IV) 500 NaCl .9 IV Solutions given in lab by Dave Rushing RN in Left Forearm via Peripheral IV. Pump/Drip Flow = 20 m l/hr using NaCl .9. Initial Case Assessment Cardiovascular HR Rhythm NIBP Chest Pain 84 Sinus 173/93 0 Edema Present Skin color Skin None Normal Warm Dry Neurological State Oriented to time-place- Alert Moves all extremities person Respiration - General Respiration Rate SpO2 (%) O2 (lpm) (B/min) 11 97 0 Final Case Assessment Cardiovascular HR Rhythm NIBP Chest Pain 74 Sinus 130/54 0 Edema Present Skin color Skin None Normal Warm Dry Neurological State Oriented to time-place- Alert Moves all extremities person Respiration - General Respiration Rate SpO2 (%) O2 (lpm) (B/min) 9 94 2 Chronological Log Time Study Chronological Log 15:10:58 Patient arrived via Bed. 15:14:09 Patient Name, D.O.B, / Armband Verified By R.N. 15:14:10 Consent signed by the physician and the patient and verified by the Fund Director staff. 15:14:12 Pre-op and post- op instructions given; patient acknowledges understanding of instructions. 15:14:13 Verbal Stimulation=2 Physical Stimulation=2 Airway=2 Respiration=2 TOTAL=8. (0=absent, 1=li mited, 2=present) 15:17:18 Presedation assessment performed by Fund Director RN. 15:17:23 Patient has been NPO for More than 6Hrs. 15:17:24 Skin Breakdown- none per patient. 15:17:43 A # 20 IV was noted in the Forearm (left). Grade = 0 15:18:10 MD arrived. 15:18:11 IV Solutions given in lab by Dave Rushing RN in Left Forearm via Peripheral IV. Pump/Drip F low = 20 ml/hr using NaCl .9. 15:18:30 History and physical on the chart or being dictated. Assessment: Initial Case, HR=84 BPM, Rhythm=Sinus, GQLJ=492/93 mmhg, Chest Pain=0, Edema=None, Color=Normal, Skin = Warm, Dry 15:19:29 Neurological: State=Alert, Ox3, DSOUZA Respiration: Resp=11 B/min, SpO2=97 %, O2=0 lpm Vitals capture started with the following parameters, Patient=Adult, Interval=5 min, Initial Pr vtzbly=650 mmHg, 15:20:10 Deflation Rate=5 mmHg, Cuff placed on Right Arm Left leg 15:21:15 prepped with 2% chlorhexidine, and draped after a 3 min. waiting time. 15:21:38 HR=82 bpm, IUAR=558/93 mmhg, SpO2=98.0 %, Resp=34 B/min, Pain=0, Becky=10, Gonzalez=2 15:22:45 2 g ANCEF given in lab by Dave Rushing RN in Left Forearm via Peripheral IV. 15:25:54 HR=64 bpm, XPBM=296/89 mmhg, SpO2=97.0 %, Resp=11 B/min, Pain=0, Becky=10, Gonzalez=2 Time Out. Correct patient, correct procedure, correct physician, power injector not loaded with contrast with surgical 15:30:10 team present. Time Out Concurred by MD and individual staff in procedure. 15:30:25 Case Start 15:30:39 2 mg VERSED given in lab by Dave Rushing RN via Peripheral IV. 15:30:43 50 mcg FENTANYL given in lab by Dave Rushing RN via Peripheral IV. 15:30:55 HR=77 bpm, MRUW=104/87 mmhg, SpO2=99.0 %, Resp=22 B/min, Pain=0, Becky=10, Gonzalez=2 15:32:32 20 mL 1% XYLOCAINE given in lab by Dave Rushing RN via Subcutaneous. Left leg guided by ulmika sahu. 15:32:49 25 mcg FENTANYL given in lab by Dave Rushing RN via Peripheral IV. 15:33:03 1 mg VERSED given in lab by Dave Rushing RN via Peripheral IV. 15:36:02 HR=69 bpm, NGES=463/62 mmhg, SpO2=95.0 %, Resp=25 B/min, Pain=0, Becky=10, Gonzalez=2 15:40:36 25 mcg FENTANYL given in lab by Dave Rushing RN via Peripheral IV. 15:40:49 HR=71 bpm, TTNP=021/67 mmhg, SpO2=96.0 %, Resp=19 B/min, Pain=0, Becky=10, Gonzalez=2 15:41:50 2 mg VERSED given in lab by Dave Rushing RN via Peripheral IV. 15:43:14 Access site was Left Saphenous vein. 15:43:53 A sheath was advanced into the Left Leg (upper) using the Percutaneous technique. 15:44:29 A CATHETER, FR7 CLOSURE FAST RFA 100CM 100CM was advanced over a wire. 15:45:06 Ablation started. 15:45:10 50 mcg FENTANYL given in lab by Dave Rushing RN via Peripheral IV. 15:45:48 HR=48 bpm, PSJZ=336/73 mmhg, SpO2=94.0 %, Resp=32 B/min, Pain=0, Becky=10, Gonzalez=2 15:46:09 1 mg VERSED given in lab by Dave Rushing RN via Peripheral IV. 15:50:24 Case End 15:50:40 Sheath removed; pressure applied to access site. 15:50:51 HR=66 bpm, ETGO=011/54 mmhg, SpO2=94.0 %, Resp=11 B/min, Pain=0, Becky=10, Gonzalez=2 Assessment: Final Case, HR=74 BPM, Rhythm=Sinus, CZHF=611/54 mmhg, Chest Pain=0, Edema=None, Color=Normal, Skin = Warm, Dry 15:51:53 Neurological: State=Alert, Ox3, DSOUZA Respiration: Resp=9 B/min, SpO2=94 %, O2=2 lpm Leg wrapped with compression wrap. 15:55:02 15:55:50 HR=69 bpm, NKQL=114/63 mmhg, SpO2=96.0 %, Resp=19 B/min, Pain=0, Becky=10, Gonzalez=2 16:00:38 Vitals capture stopped. 16:11:30 No case complications noted. End Study - Maximum Contrast Load Max Contrast Load (mL) 16.4 End Study - Patient Disposition Complications Transferred To Interventional Outcome No Outpatient Bed No attempt made
[2017-01-20] MEDS ORDERED: SODIUM CHLORIDE FLUSH BID IV FLUSH SCH (21:00)
--- NOTE | 2017-01-20 23:33 | MP ---
cc: CHANDRAKANT NAVAS DATE OF SURGERY: 01/20/2017 PREOPERATIVE DIAGNOSIS: Left lower extremity venous insufficiency POSTOPERATIVE DIAGNOSIS Left lower extremity venous insufficiency PROCEDURE Left below-knee great saphenous vein ablation. SURGEON Chandrakant Navas MD. REPEAT PHOTOCOMPOSING MACHINE OPERATOR SURGEON None ANESTHESIA Local with sedation INDICATIONS Ms. Perez is an otherwise wonderfully healthy 89 year-old lady who has left lower extremity venous insufficiency, having swelling. She has tried compression without success. She is taken to the operating room for ablation. DESCRIPTION OF PROCEDURE: Informed consent was obtained from the patient. She was taken to the operating room, placed supine on the operating room table. Appropriate time-out was taken to ensure correct patient, operative site and planned procedure. The administration of 2 grams of Ancef initiated prior to skin incision will be discontinued after single preoperative dose. Everyone in the room agreed, and we proceeded. Her left leg was prepped and draped and with the patient in Trendelenburg position and 21 gauge micropuncture needle was used to access the left saphenous vein after infiltration of local anesthetic. This was exchanged using Seldinger technique for a 7-Bermudian sheath through which a venous closure fast catheter was placed up to the mid thigh. The patient was placed in Trendelenburg position. Saphenous tumescence was infiltrated and the vein was ablated without difficulty. The catheter and sheaths removed, pressure of hemostasis. There were no complications. I was present and scrubbed for the entire procedure. MD ONESIMO Huerta/LINDSAY /6:27 PM /11:16 PM LUZ MARIA
== END 2017-01-20 18:30 | disposition home or self-care (01) ==
LOC: HDOC 13:17 → HDIC 13:18 → HDOC 18:30
PROVIDERS: ATTEND Surgery
DX: I83.12 Varicose veins of left lower extremity with inflammation (principal)
CPT/HCPCS: 36475; J0690; J1644; J2250; J3010